=== PATIENT | female | born 1970 | race Caucasian/White ===

== ENCOUNTER 2019-01-21 15:21 | Emergency (ER) | payer BC ==
--- OUTSIDE RECORDS SUMMARY | 2019-01-21 15:24 | XMS REPORT ---
:1970 Author Organization [employer] Care Team Providers Name Role Phone Javad Villela Provider Role Unavailable Allergies, Adverse Reactions, Alerts Substance Reaction Event Type N.K.D.A. Info Not Available Non Drug Allergy Problems Problem Type Condition Code Onset Dates Condition Status Assessment Back pain without radiculopathy M54.9 Active Assessment Depression with anxiety F41.8 Active Assessment Allergic rhinitis J30.9 Active Assessment Primary insomnia F51.01 Active Assessment Tobacco use disorder F17.200 Active Assessment Psoriasis L40.9 Active Problem Depression with anxiety F41.8 Active Problem Hip joint pain M25.559 Active Problem Allergic rhinitis J30.9 Active Problem Primary insomnia F51.01 Active Problem Psoriasis L40.9 Active Problem Back pain without radiculopathy M54.9 Active Problem Tobacco use disorder F17.200 Active Medications Medication Code Code Instructions Start End Status Dosage System Date Date Tramadol HCl ND 28907780824 50 MG Orally Active 1 tablet as every 12 hrs needed Fluoxetine HCl ND 74999562596 40 MG Orally Active 1 capsule Once a day Ibuprofen ND 84312183822 800 MG Orally Active 1 tablet with Three times a food or milk day as needed Famotidine ND 28933549591 40 MG Orally Active 1 tablet Once a day Gabapentin ND 53665510105 600 MG Orally Active 1 tablet Twice a day Montelukast ND 55702006022 10 MG Orally Active 1 tablet in Sodium Once a day the evening Triamcinolone ND 18219857940 0.1 % Active 1 application Acetonide Externally to affected Twice a day area ProAir HFA [facility] [id number] 108 (90 Base) January Active 2 puffs as MCG/ACT 03, needed Inhalation 2017 every 6 hrs as needed for cough, wheezing and shortness of breath Results No Known Results Summary Purpose eClinicalWorks Submission
--- OUTSIDE RECORDS SUMMARY | 2019-01-21 15:24 | XMS REPORT ---
:1970 Author Organization [employer] Care Team Providers Name Role Phone Javad Villela Provider Role Unavailable Allergies, Adverse Reactions, Alerts Substance Reaction Event Type N.K.D.A. Info Not Available Non Drug Allergy Problems Problem Type Condition Code Onset Dates Condition Status Assessment Otalgia of left ear H92.02 Active Assessment Non-recurrent acute serous otitis H65.02 Active media of left ear Problem Depression with anxiety F41.8 Active Problem Hip joint pain M25.559 Active Problem Allergic rhinitis J30.9 Active Problem Primary insomnia F51.01 Active Problem Psoriasis L40.9 Active Problem Back pain without radiculopathy M54.9 Active Problem Tobacco use disorder F17.200 Active Medications Medication Code Code Instructions Start End Status Dosage System Date Date Montelukast ND 75849931916 10 MG Orally Active 1 tablet in Sodium Once a day the evening Gabapentin ND 45362334027 600 MG Orally Active 1 tablet Twice a day Tramadol HCl ND 87939841482 50 MG Orally Active 1 tablet as every 12 hrs needed Triamcinolone ND 71812845660 0.1 % Active 1 application Acetonide Externally to affected Twice a day area Amoxicillin-Pot ND 50673860688 875-125 MG January Active 1 tablet Clavulanate Orally every 12 12, 22, hrs 2018 2018 ProAir HFA [facility] [id number] 108 (90 Base) January Active 2 puffs as MCG/ACT 03, needed Inhalation 2018 every 6 hrs as needed for cough, wheezing and shortness of breath Fluoxetine HCl ND 90307728105 40 MG Orally Active 1 capsule Once a day Famotidine ND 18470924012 40 MG Orally Active 1 tablet Once a day Ibuprofen ND 10420091624 800 MG Orally Active 1 tablet with Three times a food or milk day as needed Results No Known Results Summary Purpose eClinicalWorks Submission
[2019-01-21] MEDS ORDERED: IBUPROFEN 400 MG TAB ONE (16:02)
[2019-01-21] MEDS ORDERED: CODEINE 30MG/APAP 300MG TAB ONE (16:02)
--- NOTE | 2019-01-21 16:12 | EDPHYS ---
Physician Documentation [facility] Name: Cortney Espinal Age: 48 yrs Sex: Female : 1970 Arrival Date: 01/21/2019 Time: 15:22 Bed 10 Private MD: Javad Villela ED Physician Jean Holloway HPI: 01/21 15:45 This 48 yrs old Female presents to ER via Ambulatory with complaints of Ear cp Pain. 15:45 The patient presents with pain, that is acute, swelling, tenderness. The complaints cp affect the left ear. 15:45 Onset: The symptoms/episode began/occurred last week. cp 15:45 Associated signs and symptoms: Pertinent negatives: cough, fever, sinus trouble, sore cp throat. Severity of symptoms: in the emergency department the symptoms are worse. The patient has been recently seen by a physician: 2 day(s) ago, with similar presenting complaints, was given a prescription for antibiotics, and steroid injection. 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 - Social history:: Smoking status: Patient/guardian denies using tobacco. - Ebola Screening: : No symptoms or risks identified at this time. ROS: 15:50 Constitutional: Negative for body aches, chills, fever, poor PO intake. cp 15:50 Eyes: Negative for injury, pain, redness, and discharge. cp 15:50 ENT: Positive for ear pain, Negative for drainage from ear(s), sinus congestion, sinus pain, sore throat, difficulty swallowing, difficulty handling secretions. 15:50 Respiratory: Negative for cough, shortness of breath, wheezing. 15:50 Abdomen/GI: Negative for abdominal pain, nausea, vomiting. 15:50 Skin: Negative for rash. 15:50 Neuro: Negative for headache, weakness. 15:50 All other systems are negative. Exam: 16:00 Constitutional: The patient appears in no acute distress, alert, awake, non-toxic, well cp developed, well nourished, uncomfortable. 16:00 Head/Face: Normocephalic, atraumatic. cp 16:00 Eyes: Periorbital structures: appear normal, Conjunctiva: normal, no exudate, no injection, Lids and lashes: appear normal, bilaterally. 16:00 ENT: External ear(s): pain with movement, that is severe, of the pinna of left ear and left ear canal, swelling, of the pinna of left ear and left ear canal, mild, Ear canal(s): swelling, that is severe, of the left canal, TM's: not visable, Examination of the other ear shows no obvious abnormality, Nose: is normal, Mouth: Lips: moist, Oral mucosa: pink and intact, moist, Posterior pharynx: is normal, airway is patent, no erythema, no exudate. 16:00 Neck: ROM/movement: is normal, is supple, without pain, no range of motions limitations, no meningismus, no nuchal rigidity. 16:00 Chest/axilla: Inspection: normal. 16:00 Respiratory: the patient does not display signs of respiratory distress, Respirations: normal. Vital Signs: 15:27 Resp 16; Temp 97.4; Pulse Ox 100% on R/A; Weight 81.65 kg; Height 5 ft. 2 in. (157.48 la1 cm); 15:29 BP 141 / 93; la1 15:27 Body Mass Index 32.92 (81.65 kg, 157.48 cm) la1 MDM: 15:43 Patient medically screened. cp 16:00 Differential diagnosis: otitis media, otitis externa, ruptured TM, foreign body, acute cp otalgia. 16:10 Data reviewed: vital signs, nurses notes, and as a result, I will discharge patient. cp 16:10 Counseling: I had a detailed discussion with the patient and/or guardian regarding: the cp historical points, exam findings, and any diagnostic results supporting the discharge/admit diagnosis, the need for outpatient follow up, a family practitioner, to return to the emergency department if symptoms worsen or persist or if there are any questions or concerns that arise at home. Response to treatment: the patient's symptoms have mildly improved after treatment, and as a result, I will discharge patient. Administered Medications: 15:49 Drug: Ibuprofen 800 mg Route: PO; iw 16:05 Follow up: Response: No adverse reaction iw 15:49 Drug: Tylenol #3 (300 mg-30 mg) 2 tabs Route: PO; iw 16:05 Follow up: Response: No adverse reaction iw Disposition: 01/21/19 16:11 Discharged to Home. Impression: Otitis externa in other diseases classified elsewhere, left ear. - Condition is Stable. - Discharge Instructions: Otitis Externa. - Prescriptions for Cipro 500 mg Oral Tablet - take 1 tablet by ORAL route every 12 hours for 10 days; 20 tablet. Tylenol- Codeine #3 300-30 mg Oral Tablet - take 2 tablets by ORAL route every 6 hours As needed; 20 tablet. Ciprodex 0.3- 0.1 % Otic Drops, Suspension - instill 4 drop by OTIC route every 12 hours for 7 days , for ears ONLY; 1 Container. - Work release form, Medication Reconciliation Form, Thank You Letter, Antibiotic Education, Prescription Opioid Use form. - Follow up: Private Physician; When: 2 - 3 days; Reason: Recheck today's complaints. - Problem is new. - Symptoms have improved. Addendum: 01/24/2019 15:56 Co-signature as Attending Physician, Jean Holloway MD. r n Signatures: Yee Pitt, RN Jean Bryant MD MD rn Attema, Lee, RN RN la1 Jona Castaneda PA PA cp Corrections: (The following items were deleted from the chart) 01/21 16:16 16:11 01/21/2019 16:11 Discharged to Home. Impression: Otitis externa in other diseases iw classified elsewhere, left ear. Condition is Stable. Forms are Medication Reconciliation Form, Thank You Letter, Antibiotic Education, Prescription Opioid Use. Follow up: Private Physician; When: 2 - 3 days; Reason: Recheck today's complaints. Problem is new. Symptoms have improved. cp
--- NOTE | 2019-01-21 16:12 | ER ---
Nurse's Notes [facility] Name: Cortney Espinal Age: 48 yrs Sex: Female : 1970 Arrival Date: 01/21/2019 Time: 15:22 Bed 10 Private MD: Javad Villela Diagnosis: Otitis externa in other diseases classified elsewhere, left ear Presentation: 01/21 15:28 Presenting complaint: Patient states: Left ear pain since Tuesday, saw Dr. Villela on la1 Tuesday and he gave me a kenalog shot and some augmentin but its not getting better. Transition of care: patient was not received from another setting of care. Onset of symptoms was January 21, 2019. Risk Assessment: Do you want to hurt yourself or someone else? Patient reports no desire to harm self or others. Initial Sepsis Screen: Does the patient meet any 2 criteria? No. Patient's initial sepsis screen is negative. Does the patient have a suspected source of infection? No. Patient's initial sepsis screen is negative. Care prior to arrival: None. 15:28 Method Of Arrival: Ambulatory la1 15:28 Acuity: JOANIE 4 la1 Triage Assessment: 16:00 General: Appears in no apparent distress. Behavior is calm. 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 - Social history:: Smoking status: Patient/guardian denies using tobacco. - Ebola Screening: : No symptoms or risks identified at this time. Screenin:40 Abuse screen: Denies threats or abuse. Denies injuries from another. Nutritional iw screening: No deficits noted. Tuberculosis screening: No symptoms or risk factors identified. Fall Risk None identified. Assessment: 15:40 General: Appears in no apparent distress. Behavior is calm, cooperative. Pain: iw Complains of pain in left ear. Neuro: Level of Consciousness is awake, alert, obeys commands, Oriented to person, place, time, situation, Moves all extremities. Cardiovascular: Patient's skin is warm and dry. Respiratory: Respiratory effort is even, unlabored, Respiratory pattern is regular, symmetrical. GI: No signs and/or symptoms were reported involving the gastrointestinal system. EENT: Ear canal swollen. Derm: Skin is intact, is healthy with good turgor. Musculoskeletal: Range of motion: intact in all extremities. Vital Signs: 15:27 Resp 16; Temp 97.4; Pulse Ox 100% on R/A; Weight 81.65 kg; Height 5 ft. 2 in. (157.48 la1 cm); 15:29 BP 141 / 93; la1 15:27 Body Mass Index 32.92 (81.65 kg, 157.48 cm) la1 ED Course: 15:20 Patient has correct armband on for positive identification. iw 15:22 Patient arrived in ED. as 15:23 Javad Villela DO is Private Physician. as 15:29 Triage completed. la1 15:29 Arm band placed on right wrist. la1 15:38 Jona Castaneda PA is PHCP. cp 15:38 Jean Holloway MD is Attending Physician. cp 15:49 Yee Pitt RN is Primary Nurse. iw 16:15 No provider procedures requiring assistance completed. Patient did not have IV access iw during this emergency room visit. Administered Medications: 15:49 Drug: Ibuprofen 800 mg Route: PO; iw 16:05 Follow up: Response: No adverse reaction iw 15:49 Drug: Tylenol #3 (300 mg-30 mg) 2 tabs Route: PO; iw 16:05 Follow up: Response: No adverse reaction iw Outcome: 16:11 Discharge ordered by MD. cp 16:15 Discharged to home ambulatory. iw 16:15 Condition: good 16:15 Discharge instructions given to patient, Instructed on discharge instructions, follow up and referral plans. medication usage, Demonstrated understanding of instructions, follow-up care, medications, Prescriptions given X 1. 16:16 Patient left the ED. iw Signatures: Nena Calle as Yee Pitt, RN RN iw Junaid Langley RN RN la1 Jona Castaneda PA PA cp Corrections: (The following items were deleted from the chart) 15:32 15:28 Presenting complaint: Patient states: Left ear pain since Tuesday, saw Dr. carla Villela on Tuesday and he gave me a kenalog shot and some antibiotics but its not getting better. la1
== END 2019-01-21 16:16 | disposition home or self-care (01) ==
LOC: ER 15:21
DX: H60.92 Unspecified otitis externa, left ear (principal)
CPT/HCPCS: 99283

== ENCOUNTER 2024-03-03 17:37 | Inpatient (IN) | payer BC ==
--- OUTSIDE RECORDS SUMMARY | 2024-03-03 17:41 | XMS REPORT | Continuity of Care Document ---
Author Name Unknown Address [address] [facility] [address] [place] [address] [facility] [address] 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 Role Phone Pcp, Patient Does Not Have A Primary Care Physic shilpi Javad Villela Attending Clinician Unavailable Edson Carr DO Attending Clinician [phone] EDSON CARR Attending Clinician Unavailab EDSON Copeland Attending Clinician Unavailab Edson Copeland DO Attending Clinician [phone] Briana Jimenes PA-C Attending Clinician [phone] Unknown, Attending Attending Clinician Unavailab BRIANA Smith Attending Clinician Unavailable Jeannie Manzo Attending Clinician [phone] JEANNIE PIERSON Attending Clinician Unavailable Harlan Bishop MD Attending Clinician [phone] Snehal Mason LVN Attending Clinician [phone] DANIEL MIDDLETON Attending Clinician UnavailAvelino Ray MD Attending Clinician [phone] Rene Blair MD Attending Clinician [phone] Daniel Middleton MD Attending Clinician [phone] ARI_C Attending Clinician Unavailable Doctor Unassigned, [place] Attending Clinician U navailable Lab, Adc Fam Pob I Attending Clinician Unavailab dino Manueljagjitroberta COOK SPECIALTYLaure Cox Attending Clinician [phone] LAURE BUSH Attending Clinician UnavailRENE Palomino Admitting Clinician Unavailable ARI_Zahra Admitting Clinician Unavailable Payers Payer Name Policy Type Policy Number Effective Date Expirati on Date Source [facility] 6 [id number] 2021 00:00:00 [facility] [place] [id number] [facility] 6 [id number] 2020 00:00:00 [facility] Problems Condition Name Condition Details Condition Category Status Onset Date Resolution Date Last Treatment Date Treating Clinician Comments Source COPD with acute exacerbati on COPD with acute exacerbati on Disease Active 11-06 00:00: 00 [facility] [id number] Mixed hyperlipid emia Problem [facility] [id number] Body mass index [BMI] 32.0-32.9, adult Problem [facility] [id number] Other obesity due to excess calories Problem [facility] [id number] Other chronic pain Problem [facility] [id number] Lumbar spondylosi s Problem [facility] [id number] Psoriasis Problem [facility] [id number] Primary insomnia Problem [facility] Hip joint pain Hip joint Pain in unspecifie d hip Problem [facility] Allergic rhinitis Allergic rhinitis Problem [facility] Mixed anxiety and depressive disorder Depression with anxiety Problem [facility] [id number] Back pain without radiculopa thy Problem [facility] [id number] Tobacco use disorder Problem [facility] [id number] Pain, joint, shoulder, right Problem [facility] [id number] Chronic obstructiv e pulmonary disease, unspecifie d COPD type Problem [facility] Allergies, Adverse Reactions, Alerts Allergy Name Allergy Type Status Severity Reaction(s) Onset Date Inactive Date Treating Clinician Comments Source NO KNOWN ALLERGIE S Drug Class Active [facility] Social History Social Habit Start Date Stop Date Quantity Comments Source Sex Assigned At [facility] of [facility] use Cigarette Smoker [facility] History of Social function 2023-12-14 00:00:00 2023-12-14 00:00:00 [facility] Tobacco use and exposure 2023-11-07 00:00:00 2023-11-07 00:00:00 Former smokeless tobacco user [facility] Tobacco Comment 2023-11-07 00:00:00 2023-11-07 00:00:00 N/a [facility] Exposure to SARS-CoV-2 (event) 2019-12-12 00:00:00 2020-01-11 11:15:00 Yes [facility] Smoking Status Start Date Stop Date Source Current Every Day Smoker [facility] Tobacco smoking consumption unknown [facility] Ex-smoker 2023-11-07 00:00:00 2023-11-07 00:00:00 [facility] Medications Ordered Medication Name Filled Medication Name Start Date Stop Date Current Medication? Ordering Clinician Indication Dosage Frequency Signature (SIG) Comments Components Source albuterol 90 mcg/actuati on inhaler 03-02 00:00: 00 Yes [id number] 2{puff} Inhale 2 Puffs every 6 (six) hours as needed for Wheezing or Shortness of Breath. [facility] methotrexat e 2.5 mg tablet 01-09 08:21: 42 Yes 2.5mg Take 1 tablet by mouth weekly [facility] prednisoLON E 5 mg tablet 01-09 08:21: 42 Yes 5mg Take 1 tablet by mouth as needed. [facility] acetaminoph en (TYLENOL ARTHRITIS PAIN) 650 mg CR tablet 12-13 00:00: 00 Yes [id number] 650mg Take 1 tablet by mouth every 8 (eight) hours as needed for Pain. [facility] ibuprofen 800 mg tablet 12-13 00:00: 00 Yes [id number] 800mg Take 1 tablet by mouth every 6 (six) hours as needed for Pain (scale 4-6). [facility] dexamethaso ne (DECADRON) injection 10 mg 12-03 16:15: 00 12-03 15:13 :00 No [id number] 10mg 10 mg, Intramuscu lar, ONCE, 1 dose, On 12/04/23 at 1115, Routine [facility] ketorolac (TORADOL) injection 30 mg 12-03 16:00: 00 12-03 15:14 :00 No [id number] 30mg 30 mg, Intramuscu lar, ONCE, 1 dose, On Tue12/04/23 at 1100, Routine [facility] azithromyci n 500 mg tablet 11-08 00:00: 00 11-12 04:59 :00 No [id number] 500mg Take 1 tablet by mouth in the morning for 3 days. [facility] budesonide (PULMICORT RESPULE) nebulizer solution 0.25 mg 11-07 01:00: 00 Yes .25mg 0.25 mg, Inhalation , BID, First dose on Tue11/07/23 at 1999, Until Discontinu ed, Routine [facility] methylpredn isolone sod succ (SOLU-MEDRO L) injection 80 mg 11-07 01:00: 00 Yes 80mg 80 mg, Intravenou s, Q12H, First dose on Tue11/07/23 at 1999, Until Discontinu ed, 2 mL [facility] docusate (COLACE) capsule 100 mg 11-07 01:00: 00 Yes 100mg 100 mg, Oral, BID, First dose on Tue11/07/23 at 1999, Until Discontinu ed, Routine [facility] fluticasone -umeclidin- vilanter (TRELEGY ELLIPTA) 100-62.5-25 mcg inhaler 11-07 00:00: 00 Yes [id number] 1{puff} Inhale 1 Puff in the morning. [facility] albuterol 1.25 mg/3 mL nebulizer solution 11-07 00:00: 00 12-08 04:59 :00 No [id number] 1.25mg Use 3 mL as directed every 6 (six) hours as needed for Wheezing for up to 30 days. [facility] predniSONE 20 mg tablet 11-07 00:00: 00 11-18 04:59 :00 No [id number] Take 2 tablets by mouth daily for 1 day, THEN 1.5 tablets daily for 3 days, THEN 1 tablet daily for 3 days, THEN 0.5 tablets daily for 3 days. [facility] dextrometho rphan-guaif enesin 10-100 mg/5 mL solution 11-07 00:00: 00 11-13 04:59 :00 No [id number] 10mL Take 10 mL by mouth every 6 (six) hours as needed for Cough for up to 5 days. [facility] ipratropium -albuteroL 0.5 mg-3 mg(2.5 mg base)/3 mL nebulizer solution 11-07 00:00: 00 11-11 04:59 :00 No [id number] 3mL Inhale 3 mL every 6 (six) hours for 3 days. [facility] enoxaparin (LOVENOX) injection 40 mg 11-06 22:00: 00 Yes 40mg 40 mg, Subcutaneo us, DAILY, First dose on Tue11/07/23 at 1700, Until Discontinu ed, Routine [facility] pantoprazol e (PROTONIX) EC tablet 40 mg 11-06 19:45: 00 Yes 40mg 40 mg, Oral, DAILY, First dose on Tue11/07/23 at 1445, Until Discontinu ed, Routine [facility] azithromyci n (ZITHROMAX) tablet 500 mg 11-06 19:45: 00 11-09 13:59 :00 No 500mg 500 mg, Oral, DAILY, 3 doses, First dose on Tue11/07/23 at 1445, Last dose on Tue11/09/23 at 0900, RJ
Re ason for Anti-Infec tive: Empiric Therapy for Suspected Infection< br>Empiric Therapy Site: Respirator y
Durat ion of therapy: 72 hours [facility] ipratropium -albuteroL (DUONEB) 0.5 mg-3 mg(2.5 mg base)/3 mL nebulizer solution 3 mL 11-06 17:00: 00 Yes 3mL 3 mL, Inhalation , Q6H, First dose on Tue11/07/23 at 1200, Until Discontinu ed, Routine [facility] benzocaine- menthoL (CEPACOL SORE THROAT (MEGAN-MEN)) lozenge 1 Lozenge 11-06 16:22: 50 Yes 1{lozen ge} 1 Lozenge, Oral, Q4HPRN, Starting on Tue11/07/23 at 1122, Until Discontinu ed, Routine, Sore throat [facility] dextrometho rphan-guaif enesin (ROBITUSSIN DM) 10-100 mg/5 mL solution 10 mL 11-06 16:22: 37 Yes 10mL 10 mL, Oral, Q6HPRN, Starting on Tue11/07/23 at 1122, Until Discontinu ed, Routine, Cough [facility] ondansetron (ZOFRAN (PF)) injection 4 mg 11-06 16:14: 06 Yes 4mg 4 mg, Slow IV Push, Q6HPRN, Starting on Tue11/07/23 at 1114, Until Discontinu ed, Routine, Nausea and Vomiting (N/V) [facility] HYDROcodone -acetaminop hen (NORCO) 10-325 mg tablet 1 tablet 11-06 16:13: 53 Yes 1{tbl} 1 tablet, Oral, Q6HPRN, Starting on Tue11/07/23 at 1113, Until Discontinu ed, Routine, Pain (scale 7-10) [facility] traMADoL (ULTRAM) tablet 50 mg 11-06 16:13: 48 11-08 16:12 :48 No 50mg 50 mg, Oral, Q8HPRN, Starting on Tue11/07/23 at 1113, Until Tue11/09/23 at 1112, Routine, Pain (scale 4-6) [facility] acetaminoph en (TYLENOL) tablet 650 mg 11-06 16:13: 46 Yes 650mg 650 mg, Oral, Q6HPRN, Starting on Tue11/07/23 at 1113, Until Discontinu ed, Routine, Pain (scale 1-3) [facility] Kenalog (Triamcinol one) Kenalog (Triamcinol one) 2-13 00:00: 00 No 40mg [facility] Kenalog (Triamcinol one) Kenalog (Triamcinol one) 2021-07 0-12 00:00: 00 No 40mg [facility] Kenalog (Triamcinol one) Kenalog (Triamcinol one) 2021-07 0-12 00:00: 00 No 40mg [facility] Kenalog (Triamcinol one) Kenalog (Triamcinol one) 2021-07 0-12 00:00: 00 No 40mg [facility] FLUoxetine HCl 40 MG FLUoxetine HCl 40 MG 7-12 00:00: 00 No 1{capsu le} QD FLUoxetine HCl 40 MG Ativan Ativan 8-12 00:00: 00 02-20 00:00 :00 No Javad Villela 1 tablet 30 minutes prior to procedure [facility] Kenalog (Triamcinol one) Kenalog (Triamcinol one) 7-08 00:00: 00 No 40mg [facility] Kenalog (Triamcinol one) Kenalog (Triamcinol one) 7-08 00:00: 00 No 40mg [facility] Kenalog (Triamcinol one) Kenalog (Triamcinol one) 0 708 00:00: 00 No 40mg [facility] Kenalog (Triamcinol one) Kenalog (Triamcinol one) 08 00:00: 00 No 40mg [facility] LIDOCAINE HCL 10MG/ML LIDOCAINE HCL 10MG/ML 2018-07 0- 00:00: 00 No 5mL [facility] Kenalog (Triamcinol one) Kenalog (Triamcinol one) 2018-07 0- 00:00: 00 No 1mL [facility] LIDOCAINE HCL 10MG/ML LIDOCAINE HCL 10MG/ML 2018-07 0 00:00: 00 No 5mL [facility] Kenalog (Triamcinol one) Kenalog (Triamcinol one) 2018-07 0- 00:00: 00 No 1mL [facility] LIDOCAINE HCL 10MG/ML LIDOCAINE HCL 10MG/ML 2018-07 0 00:00: 00 No 5mL [facility] Kenalog (Triamcinol one) Kenalog (Triamcinol one) 2018-07 0- 00:00: 00 No 1mL [facility] LIDOCAINE HCL 10MG/ML LIDOCAINE HCL 10MG/ML 2018-07 0- 00:00: 00 No 5mL [facility] Kenalog (Triamcinol one) Kenalog (Triamcinol one) 2018-07 0- 00:00: 00 No 1mL [facility] Kenalog (Triamcinol one) Kenalog (Triamcinol one) 12 00:00: 00 No 40mg [facility] Kenalog (Triamcinol one) Kenalog (Triamcinol one) 12 00:00: 00 No 40mg [facility] Kenalog (Triamcinol one) Kenalog (Triamcinol one) 01-19 00:00: 00 No 40mg [facility] Kenalog (Triamcinol one) Kenalog (Triamcinol one) 01-19 00:00: 00 No 40mg [facility] ibuprofen 600 mg tablet 11-08 00:00: 00 Yes 600mg Take 1 tablet by mouth every 6 (six) hours. [facility] cyclobenzap rine 10 mg tablet 11-08 00:00: 00 Yes 10mg Take 1 tablet by mouth 3 (three) times daily. [facility] fluoxetine 40 mg capsule fluoxetine 40 mg capsule No fluoxetine 40 mg capsule [facility] montelukast 10 mg tablet montelukast 10 mg tablet No montelukas t 10 mg tablet [facility] Albuterol Sulfate HFA 108 (90 Base) MCG/ACT Albuterol Sulfate HFA 108 (90 Base) MCG/ACT No Albuterol Sulfate HFA 108 (90 Base) MCG/ACT Symbicort 160-4.5 MCG/ACT Symbicort 160-4.5 MCG/ACT No Symbicort 160-4.5 MCG/ACT Famotidine 40 MG Famotidine 40 MG No 1{table t} QD Famotidine 40 MG Triamcinolo ne Acetonide 0.1 % Triamcinolo ne Acetonide 0.1 % No 1{appli cation_ to_affe cted_ar ea} BID Triamcinol one Acetonide 0.1 % FLUoxetine HCl 40 MG FLUoxetine HCl 40 MG No 1{capsu le} QD FLUoxetine HCl 40 MG Gabapentin 600 MG Gabapentin 600 MG No Gabapentin 600 MG Montelukast Sodium 10 MG Montelukast Sodium 10 MG No 1{table t_in_th e_eveni ng} QD Montelukas t Sodium 10 MG Symbicort 160 mcg-4.5 mcg/actuati on HFA aerosol inhaler Symbicort 160 mcg-4.5 mcg/actuati on HFA aerosol inhaler No Symbicort 160 mcg-4.5 mcg/actuat ion HFA aerosol inhaler [facility] Gabapentin 600 MG Gabapentin 600 MG No Gabapentin 600 MG Symbicort 160-4.5 MCG/ACT Symbicort 160-4.5 MCG/ACT No Symbicort 160-4.5 MCG/ACT compounded medication Semaglutide SQ QW titrate as tolerated compounded medication Semaglutide SQ QW titrate as tolerated No compounded medication Semaglutid e SQ QW titrate as tolerated [facility] Triamcinolo ne Acetonide 0.1 % Triamcinolo ne Acetonide 0.1 % No 1{appli cation_ to_affe cted_ar ea} BID Triamcinol one Acetonide 0.1 % predniSONE 20 MG predniSONE 20 MG No 2{table t} QD predniSONE 20 MG ProAir HFA 90 ProAir HFA 90 No 2{puffs _as_nee ded} ProAir HFA 90 Montelukast Sodium 10 MG Montelukast Sodium 10 MG No 1{table t_in e_eveni ng} QD Montelukas t Sodium 10 MG Albuterol Sulfate HFA 108 (90 Base) MCG/ACT Albuterol Sulfate HFA 108 (90 Base) MCG/ACT No Albuterol Sulfate HFA 108 (90 Base) MCG/ACT predniSONE 20 MG predniSONE 20 MG No 2{table t} QD predniSONE 20 MG compounded medication Semagltuide sq qw compounded medication Semagltuide sq qw No compounded medication Semagltuid e sq qw [facility] Triamcinolo ne Acetonide 0.1 % Triamcinolo ne Acetonide 0.1 % No 1{appli cation_ to_affe cted_ar ea} BID Triamcinol one Acetonide 0.1 % Montelukast Sodium 10 MG Montelukast Sodium 10 MG No 1{table t_in e_eveni ng} QD Montelukas t Sodium 10 MG Gabapentin 300 MG Gabapentin 300 MG No QD Gabapentin 300 MG Albuterol Sulfate HFA 108 (90 Base) MCG/ACT Albuterol Sulfate HFA 108 (90 Base) MCG/ACT No Albuterol Sulfate HFA 108 (90 Base) MCG/ACT Gabapentin 600 MG Gabapentin 600 MG No Gabapentin 600 MG albuterol sulfate HFA 90 mcg/actuati on aerosol inhaler albuterol sulfate HFA 90 mcg/actuati on aerosol inhaler No albuterol sulfate HFA 90 mcg/actuat ion aerosol inhaler [facility] valACYclovi r HCl 1 GM valACYclovi r HCl 1 GM No 1{table t} TID valACYclov ir HCl 1 GM ProAir HFA 90 ProAir HFA 90 No 2{puffs _as_nee ded} ProAir HFA 90 FLUoxetine HCl 40 MG FLUoxetine HCl 40 MG No 1{capsu le} QD FLUoxetine HCl 40 MG Symbicort 160-4.5 MCG/ACT Symbicort 160-4.5 MCG/ACT No Symbicort 160-4.5 MCG/ACT Triamcinolo ne Acetonide 0.1 % Triamcinolo ne Acetonide 0.1 % No 1{appli cation_ to_affe cted_ar ea} BID Triamcinol one Acetonide 0.1 % ProAir HFA 90 ProAir HFA 90 No 2{puffs _as_nee ded} ProAir HFA 90 compounded medication Semaglutide SQ QW titrate as tolerated compounded medication Semaglutide SQ QW titrate as tolerated No compounded medication Semaglutid e SQ QW titrate as tolerated [facility] Symbicort 160-4.5 MCG/ACT Symbicort 160-4.5 MCG/ACT No Symbicort 160-4.5 MCG/ACT Montelukast Sodium 10 MG Montelukast Sodium 10 MG No 1{table t_in_th e_eveni ng} QD Montelukas t Sodium 10 MG FLUoxetine HCl 40 MG FLUoxetine HCl 40 MG No 1{capsu le} QD FLUoxetine HCl 40 MG Gabapentin 600 MG Gabapentin 600 MG No Gabapentin 600 MG Albuterol Sulfate HFA 108 (90 Base) MCG/ACT Albuterol Sulfate HFA 108 (90 Base) MCG/ACT No Albuterol Sulfate HFA 108 (90 Base) MCG/ACT traMADol HCl 50 MG traMADol HCl 50 MG No 1{table t_as_ne eded} BID Symbicort 160-4.5 Symbicort 160-4.5 10-13 00:00 :00 No 2{puffs } BID Symbicort 160-4.5 Immunizations Ordered Immunization Name Filled Immunization Name Date Status Comments Source Boostrix (Tdap) Boostrix (Tdap) 2019-03-29 14:50:00 Completed [facility] Boostrix (Tdap) Boostrix (Tdap) 2019-03-29 14:50:00 Completed [facility] Boostrix (Tdap) Boostrix (Tdap) 2019-03-29 14:50:00 Completed [facility] Boostrix (Tdap) Boostrix (Tdap) 2019-03-29 14:50:00 Completed [facility] Boostrix (Tdap) Boostrix (Tdap) 2019-03-29 14:50:00 Completed [facility] Boostrix (Tdap) Boostrix (Tdap) 2019-03-29 14:50:00 Completed [facility] Boostrix (Tdap) Boostrix (Tdap) 2019-03-29 14:50:00 Completed [facility] Boostrix (Tdap) Boostrix (Tdap) 2019-03-29 14:50:00 Completed [facility] Boostrix (Tdap) Boostrix (Tdap) 2019-03-29 14:50:00 Completed [facility] PNEUMAVAX 23 PNEUMAVAX 2019-03-29 14:47:00 Completed [facility] PNEUMAVAX 23 PNEUMAVAX 2019-03-29 14:47:00 Completed [facility] PNEUMAVAX 23 PNEUMAVAX 2019-03-29 14:47:00 Completed [facility] PNEUMAVAX 23 PNEUMAVAX 2019-03-29 14:47:00 Completed [facility] PNEUMAVAX 23 PNEUMAVAX 2019-03-29 14:47:00 Completed [facility] PNEUMAVAX 23 PNEUMAVAX 2019-03-29 14:47:00 Completed [facility] PNEUMAVAX 23 PNEUMAVAX 2019-03-29 14:47:00 Completed [facility] PNEUMAVAX 23 PNEUMAVAX 2019-03-29 14:47:00 Completed [facility] PNEUMAVAX 23 PNEUMAVAX 23 2019-03-29 14:47:00 Completed [facility] TDAP- Boostrix TDAP- Boostrix 2019-03-29 00:00:00 Completed [facility] PNEUMAVAX 23 PNEUMAVAX 23 2019-03-29 00:00:00 Completed [facility] PNEUMAVAX 23 PNEUMAVAX 23 Unknown Completed [facility] Boostrix (Tdap) Boostrix (Tdap) Unknown Completed [facility] PNEUMAVAX 23 PNEUMAVAX 23 Unknown Completed [facility] Boostrix (Tdap) Boostrix (Tdap) Unknown Completed [facility] Vital Signs Vital Name Observation Time Observation Value Comments S ource Systolic blood pressure 2024-01-10 13:22:00 125 mm[Hg] [facility] Diastolic blood pressure 2024-01-10 13:22:00 90 mm[Hg] [facility] Heart rate 2024-01-10 13:22:00 85 /min [facility] Oxygen saturation in Arterial blood by Pulse oximetry 2024-01-10 13:22:00 97 /min [facility] Respiratory rate 2024-01-10 13:19:00 14 /min [facility] Body height 2024-01-10 13:19:00 157.5 cm [facility] Body weight 2024-01-10 13:19:00 71.623 kg [facility] BMI 2024-01-10 13:19:00 28.88 kg/m2 [facility] Systolic blood pressure 2023-12-15 00:10:00 144 mm[Hg] [facility] Diastolic blood pressure 2023-12-15 00:10:00 89 mm[Hg] [facility] Heart rate 2023-12-15 00:09:00 89 /min [facility] Body temperature 2023-12-15 00:09:00 36.78 Keshia [facility] Respiratory rate 2023-12-15 00:09:00 18 /min [facility] Body height 2023-12-15 00:09:00 157.5 cm Univ [facility] Body weight 2023-12-15 00:09:00 70.625 kg Univ [facility] BMI 2023-12-15 00:09:00 28.48 kg/m2 Univ [facility] Oxygen saturation in Arterial blood by Pulse oximetry 2023-12-15 00:09:00 96 /min [facility] Respiratory rate 2023-12-04 15:00:00 17 /min [facility] Body weight 2023-12-04 15:00:00 70.67 kg [facility] BMI 2023-12-04 15:00:00 28.50 kg/m2 Univ [facility] Oxygen saturation in Arterial blood by Pulse oximetry 2023-12-04 15:00:00 98 /min [facility] Systolic blood pressure 2023-12-04 15:00:00 127 mm[Hg] [facility] Diastolic blood pressure 2023-12-04 15:00:00 90 mm[Hg] [facility] Heart rate 2023-12-04 15:00:00 86 /min [facility] Body temperature 2023-12-04 15:00:00 36.94 Keshia [facility] Heart rate 2023-11-08 16:37:00 91 /min [facility] Respiratory rate 2023-11-08 16:37:00 20 /min [facility] Oxygen saturation in Arterial blood by Pulse oximetry 2023-11-08 16:37:00 99 /min [facility] Systolic blood pressure 2023-11-08 12:12:00 115 mm[Hg] [facility] Diastolic blood pressure 2023-11-08 12:12:00 70 mm[Hg] [facility] Body temperature 2023-11-08 12:12:00 36.61 Keshia [facility] Body height 2023-11-07 13:00:00 157.5 cm Univ [facility] Body weight 2023-11-07 13:00:00 68.9 kg [facility] BMI 2023-11-07 13:00:00 27.78 kg/m2 [facility] height 2023-10-13 10:20:00 62 [in_i] [facility] weight 2023-10-13 10:20:00 178.8 [lb_av] [facility] bmi 2023-10-13 10:20:00 32.7 kg/m2 [facility] BP Diastolic 2023-01-20 00:00:00 92 mm[Hg] [facility] Height 2023-01-20 00:00:00 62 [in_i] [facility] BMI (Body Mass Index) 2023-01-20 00:00:00 28.7 kg/m2 [facility] BP Systolic 2023-01-20 00:00:00 147 mm[Hg] [facility] Body Weight 2023-01-20 00:00:00 2511 [oz_av] [facility] BP Diastolic 2022-10-26 00:00:00 101 mm[Hg] [facility] Height 2022-10-26 00:00:00 62 [in_i] [facility] BMI (Body Mass Index) 2022-10-26 00:00:00 32 kg/m2 [facility] BP Systolic 2022-10-26 00:00:00 153 mm[Hg] [facility] Body Weight 2022-10-26 00:00:00 2801.6 [oz_av] [facility] height 2022-04-21 13:20:00 62 [in_i] [facility] weight 2022-04-21 13:20:00 178.8 [lb_av] [facility] temperature 2022-04-21 13:20:00 97.5 [degF] Com mon [facility] bmi 2022-04-21 13:20:00 32.7 kg/m2 [facility] oximetry 2022-04-21 13:20:00 95 % [facility] respiratory rate 2022-04-21 13:20:00 17 /min [facility] blood pressure systolic 2022-04-21 13:20:00 126 mm[Hg] [facility] blood pressure diastolic 2022-04-21 13:20:00 84 mm[Hg] [facility] height 2022-01-19 13:20:00 62 [in_i] [facility] weight 2022-01-19 13:20:00 180 [lb_av] Comm on [facility] temperature 2022-01-19 13:20:00 97.4 [degF] Com mon [facility] bmi 2022-01-19 13:20:00 32.92 kg/m2 Comm on [facility] blood pressure systolic 2022-01-19 13:20:00 132 mm[Hg] [facility] blood pressure diastolic 2022-01-19 13:20:00 75 mm[Hg] [facility] height 2021-09-09 15:50:00 62 [in_i] Commo n [facility] weight 2021-09-09 15:50:00 180 [lb_av] Comm on [facility] temperature 2021-09-09 15:50:00 98 [degF] Comm on [facility] bmi 2021-09-09 15:50:00 32.92 kg/m2 Comm on [facility] blood pressure systolic 2021-09-09 15:50:00 132 mm[Hg] [facility] blood pressure diastolic 2021-09-09 15:50:00 75 mm[Hg] [facility] height 2021-08-13 14:10:00 62 [in_i] Commo n [facility] weight 2021-08-13 14:10:00 182.7 [lb_av] Co mmon [facility] temperature 2021-08-13 14:10:00 97.5 [degF] Com mon [facility] bmi 2021-08-13 14:10:00 33.41 kg/m2 Comm on [facility] oximetry 2021-08-13 14:10:00 96 % Commo n [facility] respiratory rate 2021-08-13 14:10:00 17 /min [facility] blood pressure systolic 2021-08-13 14:10:00 134 mm[Hg] [facility] blood pressure diastolic 2021-08-13 14:10:00 86 mm[Hg] [facility] Procedures Procedure Date / Time Performed Performing Clinicia n Source XR WRIST 3+ VW RIGHT 2023-12-04 15:19:02 Suki Pierson [facility] COMP. METABOLIC PANEL (60363) 2023-11-08 09:23:00 Rene Blair [facility] CBC WITH DIFF 2023-11-08 09:23:00 Rene Blair [facility] XR CHEST 1 VW 2023-11-07 21:01:55 Srinivasan Lieberman [facility] SPUTUM CULTURE 2023-11-07 19:31:00 Rene Blair [facility] COMP. METABOLIC PANEL (86362) 2023-11-07 16:59:00 Rene Blair [facility] CBC WITH DIFF 2023-11-07 16:59:00 Rene Blair [facility] Encounters Start Date/Time End Date/Time Encounter Type Admission Type Attending Clinicians Care Facility Care Department Encounter ID Source 2023-10-13 08:55:00 Outpatient [facility]bert murphy[facility] [id number] [facility] 2023-10-12 16:59:00 Outpatient Hebert Villelah [facility] [id number] [facility] 2022-04-20 10:39:00 [facility] [id number] [facility] 2022-01-18 16:46:00 Outpatient Villela, [facility] [id number] [facility] 2021-12-30 14:50:00 Outpatient Villela, [facility]avad [facility] [id number] [facility] 2021-09-08 11:10:00 Outpatient Villela, Jav[facility] [place] [id number] [facility] 2021-08-13 13:50:00 Outpatient Villela, Javad [facility] [place] [id number] [facility] 2021-08-12 14:20:00 Outpatient Villela, Javad [facility] [place] [id number] [facility] 2021-08-05 13:04:39 Outpatient Villela, Javad [facility] [place] [id number] [facility] 2021-08-05 11:39:34 Outpatient Villela, Javad [facility] [place] [id number] [facility] 2021-08-05 11:17:02 Outpatient Villela, Javad [facility] [place] [id number] [facility] 2024-03-02 00:00:00 2024-03-02 10:15:58 Telephone Edson Carr [facility] 1.2.840.114 350.1.13.10 4.2.7.2.686 [id number] [facility] 2024-01-30 11:00:00 2024-01-30 11:00:00 Outpatient R [facility] [id number] [facility] 2024-01-10 08:30:00 2024-01-10 08:59:08 Outpatient R EDSON CARR SHIWAN [facility] [id number] [facility] 2024-01-10 08:30:00 2024-01-10 08:59:08 Office Visit [facility] 1.2.840.114 350.1.13.10 4.2.7.2.686 [id number] [facility] 2023-12-14 19:00:00 2023-12-14 19:20:00 Urgent Care Briana Jimenes Unknown, Attending [facility] 1..840.114 350.1.13.10 4.2.7.2.686 [id number] [facility] 2023-12-14 19:00:00 2023-12-14 19:00:00 Outpatient R TAMIKABRIANA FAROOQ [facility] [id number] [facility] 2023-12-04 10:06:41 2023-12-04 23:59:00 Hospital Encounter Jeannie Pierson [facility] 1.2.840.114 350.1.13.10 4.2.7.2.686 [id number] [facility] 2023-12-04 10:00:00 2023-12-04 10:30:49 Outpatient R JEANNIE PIERSON [facility] [id number] [facility] 2023-12-04 10:00:00 2023-12-04 10:20:00 Urgent Care Jeannie Pierson Unknown, Attending [facility] 1..840.114 350.1.13.10 4.2.7.2.686 [id number] [facility] 2023-11-25 11:00:00 2023-11-25 11:00:00 Outpatient R [facility] [id number] [facility] 2023-11-17 00:00:00 2023-11-17 14:42:49 Case Management Harlan Bishop [facility] 1.2.840.114 350.1.13.10 4.2.7.2.686 [id number] [facility] 2023-11-09 00:00:00 2023-11-09 00:00:00 Transition of Care Snehal Mason GRACIELA [facility] 1.2.840.114 350.1.13.10 4.2.7.2.686 [id number] [facility] 2023-11-07 07:44:00 2023-11-08 14:33:00 Outpatient DANIEL HOWARD [facility] [id number] [facility] 2023-11-07 07:44:00 2023-11-08 14:33:00 Hospital Encounter Avelino Wood, Rene Middleton, Daniel [facility] ([facility]) 1.2.840.114 350.1.13.10 4.2.7.2.686 [id number] [facility] 2023-10-13 00:00:00 2023-10-13 00:00:00 OFFICE VISIT ESTAB PT LEVEL 3 [facility] [id number] [facility] 2023-10-12 00:00:00 2023-10-12 00:00:00 (TEL) [facility] [id number] [facility] 2023-03-22 00:00:00 2023-03-22 00:00:00 Outpatient SISSON_C [facility] [id number] [facility] 2023-02-08 00:00:00 2023-02-08 00:00:00 Outpatient SISSON_C [facility] [id number] [facility] 2023-02-07 00:00:00 2023-02-07 00:00:00 Outpatient SISSON_C [facility] [id number] [facility] 2023-01-20 00:00:00 2023-01-20 00:00:00 Outpatient SISSON_C [facility] [id number] [facility] 2023-01-20 00:00:00 2023-01-20 00:00:00 Anabel Fletcher MSN, REGISTERED RESPIRATORY THERAPIST, [facility]: [address], [address] [place] [address] , [address] [facility], Anabel Fletcher, MSN, [facility] [id number] [facility] 2022-12-17 00:00:00 2022-12-17 00:00:00 Outpatient SISSON_C [facility] [id number] [facility] 2022-11-03 00:00:00 2022-11-03 00:00:00 Outpatient SISSON_C [facility] [id number] [facility] 2022-10-26 00:00:00 2022-10-26 00:00:00 Outpatient SISSON_C [facility] [id number] [facility] 2022-10-26 00:00:00 2022-10-26 00:00:00 Anabel Fletcher MSN, REGISTERED RESPIRATORY THERAPIST, [facility]: [address], [place] [address] , [address] [facility], Anabel Fletcher, MSN, [facility] [id number] [facility] 2022-09-24 00:00:00 2022-09-24 00:00:00 Outpatient SISSON_C [facility] [id number] [facility] 2022-04-21 00:00:00 2022-04-21 00:00:00 OFFICE VISIT ESTAB PT LEVEL 4 [facility] [id number] [facility] 2022-01-19 00:00:00 2022-01-19 00:00:00 OFFICE VISIT ESTAB PT LEVEL 4 [facility] [id number] [facility] 2021-09-21 00:00:00 2021-09-21 00:00:00 (TEL) [facility] [id number] [facility] 2021-09-09 00:00:00 2021-09-09 00:00:00 OFFICE VISIT EST PT LEVEL 3 [facility] [id number] [facility] 2021-09-08 00:00:00 2021-09-08 00:00:00 (TEL) [facility] [id number] [facility] 2021-08-13 00:00:00 2021-08-13 00:00:00 PREV VISIT EST AGE 40-64 [facility] ST[facility] [id number] [facility] 2021-07-15 00:00:00 2021-07-15 00:00:00 (TEL) [facility]LML[facility] [id number] [facility] 2021-07-14 00:00:00 2021-07-14 00:00:00 (TEL) [facility] [id number] [facility] 2020-11-25 00:00:00 2020-11-25 00:00:00 Outpatient [facility] [id number] [facility] 2020-11-25 00:00:00 2020-11-25 00:00:00 Outpatient [facility] [id number] [facility] 2020-02-20 09:27:00 2020-02-20 09:27:00 Outpatient Jenelle case [facility] Medicine [place] [facility] Medicine [id number] [facility] 2020-02-14 15:16:00 2020-02-14 15:16:00 [facility] [place] [facility] [id number] [facility] 2020-02-13 13:30:00 2020-02-13 13:30:00 [facility] [place] [facility] Medicine [id number] [facility] 2020-01-16 16:03:00 2020-01-16 16:03:00 [facility] [place] [facility] Medicine [id number] [facility] 2020-01-16 14:15:00 2020-01-16 14:15:00 [facility] [address] [facility] [place] [facility] Medicine [id number] [facility] 2020-01-15 13:30:00 2020-01-15 13:30:00 [facility] [id number] [facility] 2020-01-14 00:00:00 2020-01-14 00:00:00 Patient Secure Msg Doctor Unassigned, [place] [facility] 1.840.114 350.1.13.10 4.2.7.2.686 [id number] [facility] 2020-01-11 11:13:50 2020-01-11 11:33:50 Laboratory Only Lab, Adc Fam Pob I Laure Bush [facility] One ..840.114 350.1.13.10 4.2.7.2.686 [id number] [facility] 2020-01-11 11:20:00 2020-01-11 11:20:00 Outpatient R LAURE BUSH [facility] [id number] [facility] 2020-01-11 11:15:00 2020-01-11 11:15:00 Outpatient R [facility] [id number] [facility] 2020-01-10 09:11:00 2020-01-10 09:11:00 [facility] [place] [facility] [id number] [facility] 2019-10-17 11:41:00 2019-10-17 11:41:00 [facility] [place] [facility] [id number] [facility] 2019-10-15 11:30:00 2019-10-15 11:30:00 [facility] [place] [facility] [id number] [facility] 2019-10-15 10:52:00 2019-10-15 10:52:00 [facility] [place] [facility] [id number] [facility] 2019-06-27 15:12:00 2019-06-27 15:12:00 [facility] [place] [facility] [id number] [facility] 2019-04-10 10:34:00 2019-04-10 10:34:00 [facility] [id number] [facility] 2019-04-10 10:00:00 2019-04-10 10:00:00 [facility] [id number] [facility] 2019-04-02 15:15:00 2019-04-02 15:15:00 [facility] [place] [facility] [id number] [facility] 2019-03-29 14:15:00 2019-03-29 14:15:00 [facility] [place] [facility] [id number] [facility] 2019-02-22 16:16:00 2019-02-22 16:16:00 [facility] [place] [facility] [id number] [facility] 2019-02-22 14:30:00 2019-02-22 14:30:00 [facility] [place] [facility] [id number] [facility] 2019-01-19 09:15:00 2019-01-19 09:15:00 Outpatient [facility] [id number] [facility] 2018-12-27 15:15:00 2018-12-27 15:15:00 Outpatient [facility] [id number] [facility] 2018-01-10 13:30:00 2018-01-10 13:30:00 Outpatient [facility] [id number] [facility] 2017-10-25 13:30:00 2017-10-25 13:30:00 Outpatient [facility] [id number] [facility] Results Test Description Test Time Test Comments Results Resul t Comments Source XR WRIST 3+ VW RIGHT 2023-12-04 15:27:44 EXAM: XR WRIST 3+ VW RIGHT HISTORY: right wrist pain COMPARISON: None available FINDINGS: Imaging of the wrist demonstrates maintenance of alignment. Joint spacesare preserved. Focal swelling is seen at the dorsal wrist. No lytic orblastic bony lesion is noted. No aggressive bony destructive change orperiosteal reaction is appreciated. No acute bony abnormality [facility]demonstrated. [facility] [id number] 21:22:19CHEST ONE VIEW HISTORY: ?COPD TECHNIQUE: ?AP view of the chest is obtained. FINDINGS: Lungs are likely hyperinflated but clear. Heart size andmediastinal silhouette are normal. No pleural effusion orpneumothorax isseen. CONCLUSIONS: No acute [facility]opulmonary disease[facility] ([id number])2023-11-07 17:31:03* Test Item Value Reference Range Interpretation Comme nts NA (test code = 0687139404) 140 mmol/L 135-145 K (test code = 5891555838) 4.3 mmol/L 3.5-5.0 CL (test code = 7197029129) 110 mmol/L 98-108 H CO2 TOTAL (test code = 3864010966) 22 mmol/L 23-31 L AGAP (test code = 2191283903) 8 2-16 BUN (test code = 3890529865) 12 mg/dL 7-23 GLUCOSE (test code = 7809873636) 173 mg/dL 70-110 H CREATININE (test code = 2160-0) 0.52 mg/dL 0.50-1.04 TOTAL BILI (test code = 6374953090) 0.5 mg/dL 0.1-1.1 CALCIUM (test code = 5437210086) 9.0 mg/dL 8.6-10.6 T PROTEIN (test code = 7851368183) 7.2 g/dL 6.3-8.2 ALBUMIN (test code = 9115143865) 4.1 g/dL 3.5-5.0 ALK PHOS (test code = 1856412914) 55 U/L 34-122 ALTv (test code = 1742-6) 20 U/L 5-35 AST(SGOT) (test code = 1611843076) 25 U/L 13-40 eGFR (test code = 69867-4) 109.9 mL/min/1.73m2 CKD-EPI eGFR (2020). Assuming creatinine has been stable day-to-day for at least three months, the eGFR indicates Category G1 (>= 90 mL/min/1.73 m2) Lab Interpretation (test code = 52041-0) Abnormal [facility] with [id number] 17:23:04* Test Item Value Reference Range Interpretation Comme nts WBC (test code = 6690-2) 7.76 4.30-11.10 RBC (test code = 789-8) 4.62 3.93-5.25 HGB (test code = 718-7) 13.6 g/dL 11.6-15.0 HCT (test code = 4544-3) 40.6 % 35.7-45.2 MCV (test code = 787-2) 87.9 fL 80.6-95.5 MCH (test code = 785-6) 29.4 pg 25.9-32.8 MCHC (test code = 786-4) 33.5 g/dL 31.6-35.1 RDW-SD (test code = 13567-7) 46.4 fL 39.0-49.9 RDW-CV (test code = 788-0) 14.5 % 12.0-15.5 PLT (test code = 777-3) 235 166-358 MPV (test code = 56047-2) 10.6 fL 9.5-12.9 NRBC/100 WBC (test code = 0002316925) 0.0 0.0-10.0 NRBC x10^3 (test code = 1218782598) See_Comment [Automated messa ge] The system which generated this result transmitted reference range: 10*3/?L. The reference range was not used to interpret this result as normal/abnormal. GRAN MAT (NEUT) % (test code = 770-8) 84.2 % IMM GRAN % (test code = 9763814083) 0.60 % LYMPH % (test code = 736-9) 13.8 % MONO % (test code = 5905-5) 0.9 % EOS % (test code = 713-8) 0.1 % BASO % (test code = 706-2) 0.4 % GRAN MAT x10^3(ANC) (test code = 3545980609) 6.53 10*3/uL 1.88-7.09 IMM GRAN x10^3 (test code = 8892580510) 0.05 10*3/uL 0.00-0.06 LYMPH x10^3 (test code = 731-0) 1.07 10*3/uL 1.32-3.29 L MONO x10^3 (test code = 742-7) 0.07 10*3/uL 0.33-0.92 L EOS x10^3 (test code = 711-2) 0.03-0.39 L BASO x10^3 (test code = 704-7) 0.03 10*3/uL 0.01-0.07 Lab Interpretation (test code = 27601-5) Abnormal [facility] Consult Notes Date/Time Note Provider Source 2023-11-07 14:31:02 Associated Order(s): CONSULT PULMONARY MEDICINE Pulmonary Medicine Consultation Note Date of Service:11/07/2023 Chief Complaint: dyspnea and wheezing History of Presenting Illness: Ms. Núñez is a 52-year-old woman with history of 30 Vascular history, probable COPD and recent shingles episode came to the hospital with 2-week history of difficulty breathing and coughing. Patient reported worsening of symptoms at nighttime. Patient tried ohih-apv-mkwsdvw cough remedies and was seen by telemedicine doc who gave her inhaler therapy which did not improve her symptoms. She came to the ER was found to be wheezing and dyspnea. Admitted for COPD exacerbation. Past Medical History: No past medical history on file. Social History: Social History Tobacco Use Smoking status: Former Types: Cigarettes Passive exposure: Never Smokeless tobacco: Former Tobacco comments: N/a Review of System (ROS): General: (-) fever, (-) chills Skin: (-) lesion HEENT: (-) headache Neck: (-) difficulty swallowing Heme: (-) bleeding disorder Resp: (+) cough, (+) dyspnea on exertion Cardio: (-) chest pain, (-) palpitations, (-) syncope GI: (-) abdominal pain, (-) nausea, (-) vomiting : (-) increased frequency Endo: (-) polyuria Neuro: (-) numbness Back: (-) pain MS: (-) muscle pain Psych: (-) depression Vital Signs: Vitals: 11/07/23 0753 11/07/23 0800 11/07/23 1130 11/07/23 1350 BP: 114/74 115/77 BP Location: Left arm Left arm Patient Position: Supine Supine Pulse: 93 84 99 Resp: 17 18 18 Temp: 36.5 ?C (97.7 ?F) 36.5 ?C (97.7 ?F) SpO2: 95% 94% 95% Weight: 151 lb 14.4 oz (68.9 kg) Height: 5' 2" (1.575 m) Physical Examination: General: alert and oriented x 4 (person, place, date/time, and situation); no apparent distress, well developed, well nourished HEENT: pupils equal, round, reactive to light; extraocular movements intact; oropharynx clear; moist mucous membranes Neck: supple, no lymphadenopathy, no bruits, no JVD Lungs: clear to auscultation bilaterally, diminished breath sounds bilaterally Cardio: S1, S2 normal; no murmurs, rubs or gallops Abdomen: soft; non-tender; non-distended; normoactive bowel sounds : not examined Rectal: not examined Extremities: no clubbing, cyanosis, or edema Skin: no rashes Neuro: cranial nerves II through XII grossly intact; sensation grossly intact; muscle strength 5 out of 5 in all four extremities Lab Data/Imaging: Recent Results (from the past 24 hour(s)) Cbc with Diff Collection Time: 11/07/23 11:59 AM Result Value Ref Range WBC 7.76 4.30 - 11.10 10*3/?L RBC 4.62 3.93 - 5.25 10*6/?L HGB 13.6 11.6 - 15.0 g/dL HCT 40.6 35.7 - 45.2 % MCV 87.9 80.6 - 95.5 fL MCH 29.4 25.9 - 32.8 pg MCHC 33.5 31.6 - 35.1 g/dL RDW-SD 46.4 39.0 - 49.9 fL RDW-CV 14.5 12.0 - 15.5 % PLT 235 166 - 358 10*3/?L MPV 10.6 9.5 - 12.9 fL NRBC/100 WBC 0.0 0.0 - 10.0 /100 WBCs NRBC x10 3 <0.01 10*3/?L GRAN MAT (NEUT) % 84.2 % IMM GRAN % 0.60 % LYMPH % 13.8 % MONO % 0.9 % EOS % 0.1 % BASO % 0.4 % GRAN MAT x10 3 (ANC) 6.53 1.88 - 7.09 10*3/uL IMM GRAN x10 3 0.05 0.00 - 0.06 10*3/uL LYMPH x10 3 1.07 (L) 1.32 - 3.29 10*3/uL MONO x10 3 0.07 (L) 0.33 - 0.92 10*3/uL EOS x10 3 <0.03 (L) 0.03 - 0.39 10*3/uL BASO x10 3 0.03 0.01 - 0.07 10*3/uL Comp. Metabolic Panel ([id number]) Collection Time: 11/07/23 11:59 AM Result Value Ref Range NA 140 135 - 145 mmol/L K 4.3 3.5 - 5.0 mmol/L CL 110 (H) 98 - 108 mmol/L CO2 TOTAL 22 (L) 23 - 31 mmol/L AGAP 8 2 - 16 BUN 12 7 - 23 mg/dL GLUCOSE 173 (H) 70 - 110 mg/dL CREATININE 0.52 0.50 - 1.04 mg/dL TOTAL BILI 0.5 0.1 - 1.1 mg/dL CALCIUM 9.0 8.6 - 10.6 mg/dL T PROTEIN 7.2 6.3 - 8.2 g/dL ALBUMIN 4.1 3.5 - 5.0 g/dL ALK PHOS 55 34 - 122 U/L ALTv 20 5 - 35 U/L AST(SGOT) 25 13 - 40 U/L eGFR 109.9 mL/min/1.73m2 No final results containing an impression from the past 2 days were found. Impressions: Acute COPD exacerbation Acute hypoxemic respiratory failure History of tobacco abuse History of shingles Recommendations: Weaned of oxygen now on room air Get CXR Add zithromax Add pulmicort C/w IV steroids and duonebs Assess home oxygen needs prior to d/c D/w patient for outpatient pulmonary follow up DVT ppx Full Code [facility] Notes Date/Time Note Provider Source 2024-03-02 10:15:40 Patient notified and was advised to follow up if symptoms do not improve. [facility] Melany Ruiz RN [facility] 2024-03-02 10:05:10 Prescription for albuterol given [facility] 2024-03-02 09:48:29 Spoke with patient states that for the past week she has been having episodes in which she will start coughing which will lead to trouble breathing, wheezing. She has a nebulizer at home and uses albuterol which relieves her symptoms. However, she states that the relief only lasts a few hours. She states her cough is worse at night. She states she was on methotrexate prescribed by another provider which was stopped and this provider ordered her a CXR, which has not been done yet. She states episodes come on without warning, seem random. Happens about three times per day. She does feel sick and no fevers. She is asking for something help relieve her symptoms in between nebulizer treatments. Will route to Dr. Carr to advise. [facility] 2024-03-02 08:58:44 Cortney Núñez is a 53 year old female Pt calling requesting a inhaler to be prescribed. Pt states that she is having SOB, Wheezing, difficulty breathing,. I did offer to escalate. Pt declined would just like an inhaler to help while she is at work and is currently able to do breathing treatments at home. Please advise [facility] [phone] - [address] [place] [id number] Ari Lopez [facility] 2023-11-09 13:20:35 TRANSITIONAL CARE MANAGEMENT ASSESSMENT 11/09/2023 Cortney Núñez [id number] Cortney Núñez is a 53 year old /White female was admitted on 11/07/23 [facility]. She was discharged on 11/08/23 with discharge disposition of HR- Routine Discharge. Admitting Physician: Reen Blair Discharge Diagnosis: COPD with acute exacerbation [J44.1] Pt. Was prescribed Neb/Albuterol. Pt. Needs as order submitted for a nebulizer machine, due to she does not have one. Sent email to [facility] to assist with referral appointment for pulmonary. Pt. [facility] has a p[facility] established will schedule f/u. Pt. confirmed my number and instructed to call back if has questions. I thanked the patient for their time and choosing [facility] [place]. No linked episodes TCM [id number] outreach documentation: Discharge Assessment Chart Assessed: 11/09/23 TCM Outreach Completed: 11/09/23 Do you have a few minutes to speak with me about how you are doing at home?: Yes Discharge Instructions Do you understand your at-home instructions?: Yes Medications Have you filled your prescriptions and do you have them in your home? : Yes (Needs script for Neulizer machine sent via [employer] email to provider.) Do you know how to take your medications?: Yes Can you provide me with the names or descriptions of any [id number] or supplements you are currently taking?: Yes Supplies Did you receive applicable home medical supplies/equipment?: No Supplies intervention?: Care coordination;Contacted physician about unresolved issues Do you understand how to use the medical supplies/equipment?: Yes Follow Up Appointment Has a follow up appointment been scheduled?: No May I assist with scheduling this appointment?: Unable to schedule-referred to HFU Team Do you have any questions about your follow up appointments?: Yes Are you able to get to your appointment? Who will be taking you?: Yes (family) Home Health Assistance Has the home health nurse contacted you since you've been home?: N/A Survey - Recognition Is there anything you would like to share about your recent hospitalization, or anyone you would like to recognize?: Yes Do you have any suggestions for improvement?: Yes (provide all scripts needed for pt's.) Do you have any other questions or concerns at this time?: Yes Future Appointments: Snehal Mason LVN [facility] 2023-11-08 12:07:37 O2 Saturation at REST on Room Air = 99% O2 Saturation at REST on 3 LPM of Oxygen = 100% If room air Saturations on Room Air are 88% or below STOP as no further testing is needed EXERTION TEST O2 Saturation at Rest on Room Air = 99% O2 Saturation being Exerted on Room Air = 97% T Cynthia Piedra RN [facility] 2023-11-08 10:34:18 Problem: Tissue Perfusion, Cerebral - Altered Goal: Absence of continued neurologic deterioration signs and symptoms Outcome: Progressing as expected Problem: Falls, Risk of Goal: Absence of falls Outcome: Progressing as expected T Migue Wood RN [facility] 2023-11-07 21:24:49 Problem: Tissue Perfusion, Cerebral - Altered Goal: Absence of continued neurologic deterioration signs and symptoms Outcome: Progressing as expected Problem: Falls, Risk of Goal: Absence of falls Outcome: Progressing as expected [facility] Indy Chester RN [facility] 2023-11-07 17:29:43 Problem: Tissue Perfusion, Cerebral - Altered Goal: Absence of continued neurologic deterioration signs and symptoms Outcome: Progressing as expected Problem: Falls, Risk of Goal: Absence of falls Outcome: Progressing as expected [facility] 2023-11-07 17:27:58 Problem: Tissue Perfusion, Cerebral - Altered Goal: Absence of continued neurologic deterioration signs and symptoms Outcome: Progressing as expected Problem: Falls, Risk of Goal: Absence of falls Outcome: Progressing as expected [facility]
[2024-03-03] MEDS ORDERED: NA CHLORIDE 0.9% 1,000 ML ONE ×2 (18:20→19:42)
[2024-03-03 18:25] LABS: Absolute Basophils 0.1 K/uL (0-0.5); Absolute Eosinophils 1.2 K/uL (0-0.5); Absolute Lymphocytes (CBC) 3.7 K/uL (0.7-4.9); Absolute Neutrophil 5.6 K/uL (1.8-8.0); Basophils % 1.1 % (0-1.3); Eosinophils % 10.6 % (0-4.4); Hematocrit 37.6 % (36.0-45.0); Hemoglobin 12.6 g/dL (12.0-15.0); Lymphocytes % 31.8 % (15.3-44.8); MCH 30.6 pg (27.0-35.0); MCHC 33.4 g/dL (32.0-36.0); MCV 91.5 fL (80-100); MPV 7.9 fL (7.6-11.3); Monocytes % 8.6 % (3.3-12.3); Neutrophils % 47.9 % (41.7-73.7); Nucleated Red Blood Cells % 0.2 % (0-0); Platelets 269 thou/uL (152-406); RBC Red Blood Cell Count 4.11 M/uL (3.86-4.86); Red Cell Distribution Width 15.1 % (12.1-15.2)
[2024-03-03 18:39] LABS: PT Prothrombin Time 9.6 SECONDS (9.4-12.5); Protime INR 0.85
[2024-03-03 18:44] LABS: ALT/SGPT 27 U/L (13-56); AST/SGOT 15 U/L (15-37); Albumin 3.4 g/dL (3.4-5.0); Albumin/Globulin Ratio 0.9 (1.1-1.8); Alkaline Phosphatase 54 U/L (45-117); Anion Gap 9.7 mEq/L (5.0-15.0); BUN Blood Urea Nitrogen 8 mg/dL (7-18); Bicarbonate 25 mEq/L (21-32); Bilirubin Total 0.3 mg/dL (0.2-1.0); Globulin 3.6 g/dL (2.3-3.5); Glomerular Filtration Rate 103 ml/min (=/>90); Glucose Level 96 mg/dL (74-106); Lipase 66 U/L (13-75); NT PRO-BNP 47 pg/mL (<125); Potassium 3.7 mEq/L (3.5-5.1); Sodium Level 143 mEq/L (136-145); Troponin High Sensitivity 4.5 pg/mL (<58.9)
[2024-03-03 18:45] LABS: Bilirubin Direct < 0.2 mg/dL (0-0.2); Bilirubin Indirect, Calculated 0.1 mg/dL (0.2-0.8)
--- NOTE | 2024-03-03 18:46 | RAD REPORT ---
EXAM DESCRIPTION: RAD - Chest Single View - 03/03/2024 6:40 pm CLINICAL HISTORY: DYSPNEA Chest pain. COMPARISON: <Comparisons> FINDINGS: Portable technique limits examination quality. The lungs are grossly clear. The heart is normal in size. No displaced fractures. IMPRESSION: No acute intrathoracic process suspected.
--- NOTE | 2024-03-03 18:59 | EDPHYS ---
Physician Documentation [facility] Name: Cortney Espinal Age: 53 yrs Sex: Female : 1970 Arrival Date: 03/03/2024 Time: 17:37 Bed 2 Private MD: ED Physician Jona Spangler HPI: 03/03 18:52 This 53 yrs old Female presents to ER via Ambulatory with complaints of sal Breathing Difficulty. 18:52 The patient has shortness of breath at rest, with light activity. Onset: The sal symptoms/episode began/occurred 3 day(s) ago. Duration: The symptoms are continuous, and are steadily getting worse. The patient's shortness of breath is aggravated by coughing, supine position, is alleviated by nebulizer treatment, sitting up, application of supplemental oxygen. Associated signs and symptoms: Pertinent positives: non-productive cough, dizziness. Severity of symptoms: At their worst the symptoms were moderate in the emergency department the symptoms are unchanged. The patient has experienced similar episodes in the past, multiple times. 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 - Infectious Disease History:: Denies. - Social history:: Smoking status: Patient/guardian denies using tobacco. ROS: 18:54 Constitutional: Negative for fever, chills, and weight loss, Eyes: Negative for injury, sal pain, redness, and discharge, ENT: Negative for injury, pain, and discharge, Neck: Negative for injury, pain, and swelling, Abdomen/GI: Negative for abdominal pain, nausea, vomiting, diarrhea, and constipation, Back: Negative for injury and pain, : Negative for injury, bleeding, discharge, and swelling, MS/Extremity: Negative for injury and deformity, Skin: Negative for injury, rash, and discoloration, Neuro: Negative for headache, weakness, numbness, tingling, and seizure, Psych: Negative for depression, anxiety, suicide ideation, homicidal ideation, and hallucinations, Allergy/Immunology: Negative for hives, rash, and allergies, Endocrine: Negative for neck swelling, polydipsia, polyuria, polyphagia, and marked weight changes, Hematologic/Lymphatic: Negative for swollen nodes, abnormal bleeding, and unusual bruising, 18:54 Cardiovascular: Positive for palpitations, 18:54 Respiratory: Positive for cough, shortness of breath, wheezing, inspiratory, expiratory, 18:54 MS/extremity: Negative for acute changes, Exam: 18:54 Constitutional: This is a well developed, well nourished patient who is awake, alert, sal and in no acute distress. Head/Face: Normocephalic, atraumatic. Eyes: Pupils equal round and reactive to light, extra-ocular motions intact. Lids and lashes normal. Conjunctiva and sclera are non-icteric and not injected. Cornea within normal limits. Periorbital areas with no swelling, redness, or edema. ENT: Nares patent. No nasal discharge, no septal abnormalities noted. Tympanic membranes are normal and external auditory canals are clear. Oropharynx with no redness, swelling, or masses, exudates, or evidence of obstruction, uvula midline. Mucous membranes moist. Neck: Trachea midline, no thyromegaly or masses palpated, and no cervical lymphadenopathy. Supple, full range of motion without nuchal rigidity, or vertebral point tenderness. No Meningismus. Chest/axilla: Normal chest wall appearance and motion. Nontender with no deformity. No lesions are appreciated. Abdomen/GI: Soft, non-tender, with normal bowel sounds. No distension or tympany. No guarding or rebound. No evidence of tenderness throughout. Back: No spinal tenderness. No costovertebral tenderness. Full range of motion. Skin: Warm, dry with normal turgor. Normal color with no rashes, no lesions, and no evidence of cellulitis. MS/ Extremity: Pulses equal, no cyanosis. Neurovascular intact. Full, normal range of motion. Neuro: Awake and alert, GCS 15, oriented to person, place, time, and situation. Cranial nerves II-XII grossly intact. Motor strength 5/5 in all extremities. Sensory grossly intact. Cerebellar exam normal. Normal gait. Psych: Awake, alert, with orientation to person, place and time. Behavior, mood, and affect are within normal limits. 18:54 ECG was reviewed by the Attending Physician. Vital Signs: 17:59 BP 127 / 90; Pulse 81; Resp 24; Temp 97.8(O); Pulse Ox 97% on R/A; Weight 71.21 kg; aa5 Height 5 ft. 2 in. ; Pain 5/10; 18:34 BP 117 / 89; Pulse 108; Resp 18; Pulse Ox 94% on R/A; me1 20:00 BP 130 / 88; Pulse 91; Resp 20 S; Temp 98.2(O); Pulse Ox 100% on R/A; ha1 21:00 BP 128 / 78; Pulse 94; Resp 19 S; Pulse Ox 100% on R/A; ha1 17:59 Body Mass Index 28.72 (71.21 kg, 157.48 cm) aa5 17:59 Pain Scale: Adult aa5 MDM: 17:46 Patient medically screened. sal 18:55 Differential diagnosis: Anemia Bronchitis CHF exacerbation, Chronic Obstructive sal Pulmonary Disease obstructed airway, tracheal injury, bronchitis, flu, URI, reactive airway, CHF, URI, foreign body, pulmonary edema, Pulmonary Embolism reactive airway disease. Antibiotic administration: Levaquin given. Immunization status: Influenza vaccine: within last 5 years. Data reviewed: vital signs, nurses notes, EMS record, lab test result(s), EKG, radiologic studies, plain films. Consideration of Admission/Observation Patient was admitted/placed on observation. Escalation of care including admission/observation considered. I considered the following discharge prescriptions or medication management in the emergency department Medications were administered in the Emergency Department. See MAR. Independent interpretation of the following test(s) in the Emergency Department EKG: See my EKG interpretation above. Test considered but Not performed: CT: NO CT CHEST. Historians other than the Patient: PT WELL INFORMED. Care significantly affected by the following chronic conditions: ASTHMA, RA. Counseling: I had a detailed discussion with the patient and/or guardian regarding the historical points, exam findings, and any diagnostic results supporting the discharge/admit diagnosis, lab results, radiology results, the need for further work-up and treatment in the hospital. 03/03 17:49 Order name: Basic Metabolic Panel; Complete Time: 19: [facility] 03/03 17:49 Order name: CBC with Diff; Complete Time: 19: [facility] 03/03 17:49 Order name: LFT's; Complete Time: 19: [facility] 03/03 17:49 Order name: Magnesium; Complete Time: 19: [facility] 03/03 17:49 Order name: NT PRO-BNP; Complete Time: 19:07 [facility] 03/03 17:49 Order name: PT-INR; Complete Time: 19:07 [facility] 03/03 17:49 Order name: Troponin HS; Complete Time: 19:07 [facility] 03/03 17:49 Order name: Lipase; Complete Time: 19:07 [facility] 03/03 17:49 Order name: Urinalysis w/ reflexes [facility] 03/03 18:45 Order name: Blood Culture Adult (2) [facility] 03/03 18:45 Order name: Lactate w/ 2H reflex if indic. [facility] 03/03 18:45 Order name: Flu [facility] 03/03 18:45 Order name: SARS RAPID [facility] 03/03 21:15 Order name: Urinalysis w/ reflexes EDMN 03/03 21:15 Order name: CBC with Automated Diff EDMN 03/03 21:15 Order name: CBC with Automated Diff [facility] 03/03 21:15 Order name: Comprehensive Metabolic Panel [facility] 03/03 21:15 Order name: Comprehensive Metabolic Panel [facility] 03/03 17:49 Order name: XRAY Chest (1 view); Complete Time: 19:07 [facility] 03/03 17:49 Order name: CT Chest For PE Angio [facility] 03/03 17:49 Order name: Cardiac monitoring; Complete Time: 18:29 [facility] 03/03 17:49 Order name: EKG - Nurse/Tech; Complete Time: 18:29 [facility] 03/03 17:49 Order name: IV Saline Lock; Complete Time: 18:17 [facility] 03/03 17:49 Order name: Labs collected and sent; Complete Time: 18:17 [facility] 03/03 17:49 Order name: O2 Per Protocol; Complete Time: 18:17 [facility] 03/03 17:49 Order name: O2 Sat Monitoring; Complete Time: 18:17 [facility] EC:54 Rate is 87 beats/min. Rhythm is regular. QRS [place] is Normal. FL interval is normal. QRS sal interval is normal. QT interval is normal. No Q waves. T waves are Normal. No ST changes noted. Clinical impression: Sinus tachycardia and No evidence of ischemia. Interpreted by me. Reviewed by me. Administered Medications: 18:24 Drug: NS 0.9% IV 1000 ml IV at 1 bolus Per protocol; 1000 mL bolus Route: IV; Rate: 1 me1 bolus; Site: right antecubital; 21:20 Follow up: Response: No adverse reaction; IV Status: Completed infusion; IV Intake: bm8 1000ml 19:45 Drug: predniSONE PO 60 mg PO once Route: PO; ha1 21:19 Follow up: Response: No adverse reaction bm8 19:52 Drug: Magnesium Sulfate IVPB 2 grams IVPB once over 1 hrs Route: IVPB; Infused Over: 1 ha1 hrs; Site: right antecubital; 21:19 Follow up: Response: No adverse reaction; IV Status: Completed infusion; IV Intake: bm8 100ml 19:54 Drug: Famotidine IVP 20 mg IVP once; dilute with 10 mL 0.9% NaCl; give over 2 minutes ha1 Route: IVP; Site: right forearm; 21:19 Follow up: Response: No adverse reaction bm8 19:55 Drug: MethylPrednisoLONE IVP 125 mg IVP once Route: IVP; Site: right forearm; ha1 21:19 Follow up: Response: No adverse reaction bm8 20:00 Drug: NS 0.9% IV 1000 ml IV at 1 bolus Per protocol; 1000 mL bolus Route: IV; Rate: 1 ha1 bolus; Site: right antecubital; 21:20 Follow up: Response: No adverse reaction; IV Status: Completed infusion; IV Intake: bm8 1000ml 20:00 Drug: Levalbuterol Inhalation 3.75 mg Inhalation once Route: Inhalation; ha1 21:19 Follow up: Response: No adverse reaction bm8 20:00 Drug: Ipratropium Inhalation Aerosol 0.5 mg Inhalation once Route: Inhalation; ha1 21:19 Follow up: Response: No adverse reaction bm8 20:03 Drug: levofloxacin IVPB 500 mg 100 ml IVPB once over 60 mins Volume: 100 ml; Route: ha1 IVPB; Infused Over: 60 mins; Site: right forearm; 21:20 Follow up: Response: No adverse reaction; IV Status: Completed infusion; IV Intake: bm8 500ml Disposition Summary: 03/03/24 18:59 Hospitalization Ordered Notes: Hospitalization Status: Inpatient Admission sal Provider: Quincy Valente cha Location: Telemetry/[facility] (Inpatient) sal Condition: Fair sal Problem: new sal Symptoms: have improved sal Bed/Room Type: Standard sla Room Assignment: 211(03/03/24 20:18) vc1 Diagnosis - Hypoxemia sal - Dyspnea asl - Dyspnea, unspecified sal - COPD/ Chronic obstructive pulmonary disease with (acute) exacerbation sal Forms: - Medication Reconciliation Form sal - SBAR form [facility] - Leadership Thank You Letter [facility] Signatures: Dispatcher [employer] EDJona Olea MD MD cha Calderon, Audri, RN RN aa5 Rosa Hitchcock RN RN ll1 Shelby Gupta RN RN vc1 Vanna Albert, RN RN ha1 Patria Morales RN RN me1 Grupo Lima RN bm8 Corrections: (The following items were deleted from the chart) 17:49 17:49 BASIC METABOLIC PANEL+C.LAB.BRZ ordered. EDMS EDMS 17:49 17:49 CBC+H.LAB.BRZ ordered. EDMS EDMS 17:49 17:49 HEPATIC FUNCTION+C.LAB.BRZ ordered. EDMS EDMS 17:49 17:49 MAGNESIUM+C.LAB.BRZ ordered. EDMS EDMS 17:49 17:49 PROBNP+C.LAB.BRZ ordered. EDMS EDMS 17:49 17:49 PROTIME (+INR)+COAG.LAB.BRZ ordered. EDMS EDMS 17:49 17:49 Troponin High Sensitivity+C.LAB.BRZ ordered. EDMS EDMS 17:49 17:49 LIPASE+C.LAB.BRZ ordered. EDMS EDMS 17:49 17:49 Urinalysis+U.LAB.BRZ ordered. EDMS EDMS 17:49 17:49 Chest Single View+RAD.RAD.BRZ ordered. EDMS EDMS 17:50 17:50 Chest For PE Angio+CT.RAD.BRZ ordered. EDMS EDMS 18:46 18:46 Influenza Screen (A \T\ B)+BA.LAB.BRZ ordered. EDMS EDMS 18:46 18:46 SARS-COV-2 Antigen Rapid+I.LAB.BRZ ordered. EDMS EDMS 20:18 18:59 sal vc1
--- NOTE | 2024-03-03 18:59 | ER ---
Nurse's Notes [facility] Name: Cortney Espinal Age: 53 yrs Sex: Female : 1970 Arrival Date: 03/03/2024 Time: 17:37 Bed 2 Private MD: Diagnosis: Hypoxemia;Dyspnea;Dyspnea, unspecified;COPD/ Chronic obstructive pulmonary disease with (acute) exacerbation Presentation: 03/03 17:59 Chief complaint: Patient states: Dry cough, SOB, and painful coughing for 1 week. Covid aa5 positive test 2 weeks ago. Coronavirus screen: Client denies travel out of the [place] in the last 14 days. cough unrelated to allergies, difficulty breathing, fatigue, shortness of breath, Client presents with at least one sign or symptom that may indicate coronavirus-19. Standard/surgical mask placed on the client. Ebola Screen: Patient denies travel to an Ebola-affected area in the 21 days before illness onset. Initial Sepsis Screen: Does the patient meet any 2 criteria? No. Patient's initial sepsis screen is negative. Does the patient have a suspected source of infection? No. Patient's initial sepsis screen is negative. Risk Assessment: Do you want to hurt yourself or someone else? Patient reports no desire to harm self or others. Onset of symptoms was February 26, 2024. 17:59 Method Of Arrival: Ambulatory aa5 17:59 Acuity: JOANIE 3 aa5 Triage Assessment: 18:01 General: Appears uncomfortable, ill, Behavior is cooperative, appropriate for age, aa5 anxious, Reports feeling ill for fatigue for. Pain: Complains of pain in chest Pain currently is 5 out of 10 on a pain scale. Quality of pain is described as aching. Neuro: No deficits noted. Respiratory: Reports shortness of breath cough that is pain with cough. 21:20 Respiratory: the patient has moderate shortness of breath. 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 - Infectious Disease History:: Denies. - Social history:: Smoking status: Patient/guardian denies using tobacco. Screenin:[facility] ED Fall Risk Assessment (Adult) History of falling in the last 3 months, me1 including since admission No falls in past 3 months (0 pts) Confusion or Disorientation No (0 pts) Intoxicated or Sedated No (0 pts) Impaired Gait No (0 pts) Mobility Assist Device Used No (0 pt) Altered Elimination No (0 pt) Score/Fall Risk Level 0 - 2 = Low Risk Maintained a safe environment, Provided non-skid footwear, Hourly rounding (assess needs \T\ fall precautionary measures) done. Abuse screen: Denies threats or abuse. Nutritional screening: No deficits noted. Tuberculosis screening: No symptoms or risk factors identified. Assessment: 18:30 General: Appears ill, well groomed, well developed, well nourished, Behavior is calm, me1 cooperative, appropriate for age, Reports Dry cough, SOB, and painful coughing for 1 week. Covid positive test 2 weeks ago. Pain: Complains of pain in chest Pain does not radiate. Pain at worst was 5 out of 10 on a pain scale. Quality of pain is described as tender, Pain began 2-3 days ago. Is intermittent, Aggravated by cough. Neuro: Level of Consciousness is awake, alert, obeys commands, Oriented to person, place, time, situation, Appropriate for age. Cardiovascular: Patient's skin is warm and dry. Cardiovascular: Rhythm is regular. Respiratory: Airway is patent Respiratory effort is even, unlabored, Respiratory pattern is regular, symmetrical, Breath sounds are diminished bilaterally. GI: No signs and/or symptoms were reported involving the gastrointestinal system. : No signs and/or symptoms were reported regarding the genitourinary system. EENT: No signs and/or symptoms were reported regarding the EENT system. Derm: Skin is intact, is healthy with good turgor, Skin is pink, warm \T\ dry. Musculoskeletal: No signs and/or symptoms reported regarding the musculoskeletal system. 19:20 General: Appears uncomfortable, Behavior is cooperative, anxious. Pain: Complains of ha1 pain in chest and headache Pain does not radiate. Pain currently is 8 out of 10 on a pain scale. Quality of pain is described as heavy, pressure, Pain began gradually, 2-3 days ago. Is intermittent. Neuro: [place] Agitation-Sedation Scale (RASS): Level of Consciousness is awake, alert, obeys commands, Oriented to person, place, time, situation. Cardiovascular: Reports shortness of breath, pain on the chest when coughing Heart tones S1 S2 present Capillary refill < 3 seconds Patient's skin is warm and dry. Rhythm is sinus rhythm. Respiratory: Airway is patent Respiratory effort is even, unlabored, Respiratory pattern is regular, symmetrical, Breath sounds are diminished bilaterally. Breath sounds with wheezes bilaterally. GI: No signs and/or symptoms were reported involving the gastrointestinal system. : No signs and/or symptoms were reported regarding the genitourinary system. Derm: Skin is intact, is healthy with good turgor, Skin is pink, warm \T\ dry. Musculoskeletal: Circulation, motion, and sensation intact. Range of motion: intact in all extremities. 20:45 Reassessment: Patient and/or family updated on plan of care and expected duration. Pain ha1 level reassessed. Patient is alert, oriented x 3, equal unlabored respirations, skin warm/dry/pink. Patient states feeling better. Patient states symptoms have improved. Vital Signs: 17:59 BP 127 / 90; Pulse 81; Resp 24; Temp 97.8(O); Pulse Ox 97% on R/A; Weight 71.21 kg; aa5 Height 5 ft. 2 in. ; Pain 5/10; 18:34 BP 117 / 89; Pulse 108; Resp 18; Pulse Ox 94% on R/A; me1 20:00 BP 130 / 88; Pulse 91; Resp 20 S; Temp 98.2(O); Pulse Ox 100% on R/A; ha1 21:00 BP 128 / 78; Pulse 94; Resp 19 S; Pulse Ox 100% on R/A; ha1 17:59 Body Mass Index 28.72 (71.21 kg, 157.48 cm) aa5 17:59 Pain Scale: Adult aa5 ED Course: 17:39 Patient arrived in ED. ra3 17:46 Jona Spangler MD is Attending Physician. sal 17:46 Arm band placed on Patient placed in an exam room, on a stretcher. ll1 18:01 Triage completed. aa5 18:04 Patria Morales RN is Primary Nurse. me1 18:17 Initial lab(s) drawn, by va, sent to lab. Inserted saline lock: 22 gauge in right me1 antecubital area, using aseptic technique. 18:17 Basic Metabolic Panel Sent. me1 18:17 CBC with Diff Sent. me1 18:17 LFT's Sent. me1 18:17 Magnesium Sent. me1 18:17 NT PRO-BNP Sent. me1 18:17 PT-INR Sent. me1 18:17 Troponin HS Sent. me1 18:18 Lipase Sent. me1 18:29 Client placed on continuous cardiac and pulse oximetry monitoring. NIBP monitoring me1 applied. court monitor on. Pulse ox on. NIBP on. 18:29 EKG done, by ED staff, reviewed by Jona Spangler MD. me1 18:30 Patient has correct armband on for positive identification. Bed in low position. Call me1 light in reach. Side rails up X2. Provided Education on: POC. Verbalized understanding. . 18:30 No provider procedures requiring assistance completed. me1 18:42 XRAY Chest (1 view) In Process Unspecified. EDMS 18:58 Quincy Valente MD is Hospitalizing Provider. [facility] 19:30 Inserted saline lock: 20 gauge in right forearm, using aseptic technique. Blood ha1 collected. Flushed with 10 mL NS. 19:40 CT Chest For PE Angio In Process Unspecified. EDMS 19:40 Blood Culture Adult (2) Sent. ha1 21:18 Patient admitted, IV remains in place. bm8 Administered Medications: 18:24 Drug: NS 0.9% IV 1000 ml IV at 1 bolus Per protocol; 1000 mL bolus Route: IV; Rate: 1 me1 bolus; Site: right antecubital; 21:20 Follow up: Response: No adverse reaction; IV Status: Completed infusion; IV Intake: bm8 1000ml 19:45 Drug: predniSONE PO 60 mg PO once Route: PO; ha1 21:19 Follow up: Response: No adverse reaction bm8 19:52 Drug: Magnesium Sulfate IVPB 2 grams IVPB once over 1 hrs Route: IVPB; Infused Over: 1 ha1 hrs; Site: right antecubital; 21:19 Follow up: Response: No adverse reaction; IV Status: Completed infusion; IV Intake: bm8 100ml 19:54 Drug: Famotidine IVP 20 mg IVP once; dilute with 10 mL 0.9% NaCl; give over 2 minutes ha1 Route: IVP; Site: right forearm; 21:19 Follow up: Response: No adverse reaction bm8 19:55 Drug: MethylPrednisoLONE IVP 125 mg IVP once Route: IVP; Site: right forearm; ha1 21:19 Follow up: Response: No adverse reaction bm8 20:00 Drug: NS 0.9% IV 1000 ml IV at 1 bolus Per protocol; 1000 mL bolus Route: IV; Rate: 1 ha1 bolus; Site: right antecubital; 21:20 Follow up: Response: No adverse reaction; IV Status: Completed infusion; IV Intake: bm8 1000ml 20:00 Drug: Levalbuterol Inhalation 3.75 mg Inhalation once Route: Inhalation; ha1 21:19 Follow up: Response: No adverse reaction bm8 20:00 Drug: Ipratropium Inhalation Aerosol 0.5 mg Inhalation once Route: Inhalation; ha1 21:19 Follow up: Response: No adverse reaction bm8 20:03 Drug: levofloxacin IVPB 500 mg 100 ml IVPB once over 60 mins Volume: 100 ml; Route: ha1 IVPB; Infused Over: 60 mins; Site: right forearm; 21:20 Follow up: Response: No adverse reaction; IV Status: Completed infusion; IV Intake: bm8 500ml Medication: 18:30 VIS not applicable for this client. me1 Intake: 21:19 IV: 100ml; Total: 100ml. bm8 21:20 IV: 1000ml; Total: 1100ml. bm8 21:20 IV: 500ml; Total: 1600ml. bm8 21:20 IV: 1000ml; Total: 2600ml. bm8 Outcome: 18:59 Decision to Hospitalize by Provider. [facility] 21:18 Admitted to Med/surg accompanied by nurse, via wheelchair, room 211, bm8 21:18 Condition: stable 21:18 Instructed on the need for admit, Demonstrated understanding of instructions, follow-up care, 21:21 Patient left the ED. bm8 Signatures: Dispatcher [employer] EDTN Jona Spangler MD MD cha Calderon, Audri, RN RN Rosa Pagan RN RN ll1 Vanna Albert RN RN [email or web address] Patria Morales RN RN me1 Estelle Mac ra3 Grupo Lima RN RN bm8 Corrections: (The following items were deleted from the chart) 18:24 17:59 Chief complaint: Patient states: Dry cough, SOB, and painful coughing for 1 week. me1 Covid positive test 2 weeks ago. aa5 20:20 20:17 BLOOD CULTURE*+BA.LAB.BRZ drawn and sent. ha1 ha1
[2024-03-03] MEDS ORDERED: IPRATROPIUM BROM 0.5MG/2.5ML ONE (19:40)
[2024-03-03] MEDS ORDERED: METHYLPREDNISOLONE 125 MG INJ ONE (19:41)
[2024-03-03] MEDS ORDERED: predniSONE 20 MG TAB ONE (19:41)
[2024-03-03] MEDS ORDERED: LEVALBUTEROL 1.25 MG/3 ML NEB ONE (19:41)
[2024-03-03] MEDS ORDERED: Levofloxacin500mg IV 500 MG/100 ML BAG IV ONE (19:42)
[2024-03-03] MEDS ORDERED: Magnesium Sulfate 2gm IVPB 2 G/50 ML BAG IV ONE (19:42)
[2024-03-03] MEDS ORDERED: FAMOTIDINE 20 MG/2 ML VIAL IV ONE (19:42)
--- NOTE | 2024-03-03 20:00 | RAD REPORT ---
EXAM DESCRIPTION: CT - Chest For Pe Angio - 03/03/2024 7:38 pm CLINICAL HISTORY: Chest pain. Dyspnea;Chest pain COMPARISON: <Comparisons> TECHNIQUE: CT angiogram of the pulmonary arteries was performed with MIP. All CT scans are performed using dose optimization technique as appropriate and may include automated exposure control or mA/KV adjustment according to patient size. FINDINGS: No evidence of pulmonary thromboembolism. No acute aortic finding demonstrated. The lungs are clear. No significant pericardial or pleural fluid. No concerning bony finding. IMPRESSION: No evidence of pulmonary thromboembolism. No acute lung findings.
[2024-03-03 20:01] LABS: SARS-CoV-2 Antigen CONTROL BLUE LINE VIS/BG OK; SARS-CoV-2 Antigen Rapid Res Negative (Negative)
--- NOTE | 2024-03-03 20:32 | P.HP ---
Certification for Inpatient Patient admitted to: Inpatient With expected LOS: >2 Midnights Practitioner: I am a practitioner with admitting privileges, knowledge of patient current condition, hospital course, and medical plan of care. Services: Services provided to patient in accordance with Admission requirements found in Title 42 Section 412.3 of the Code of Federal Regulations Patient History Date of Service: 03/03/24 Reason for admission: SOB History of Present Illness: 53 yrs old Female with past medical history of asthma who had a recent COVID infection started having shortness of breath which has been progressively worsening over the last 3 days. Patient denies any fever or chills. Associated with cough with mucoid expectoration. No nausea vomiting or diarrhea. Denies any chest pain. Had has been was sick with COVID as well. The symptoms are continuous, and are steadily getting worse. The patient's shortness of breath is aggravated by coughing, supine position, is alleviated by nebulizer treatment, sitting up, application of supplemental oxygen. Patient was assessed in the ER and is admitted for further management Of COPD exacerbation/bronchitis Allergies No Known Allergies Allergy (Unverified 03/03/24 21:23) Home medications list reviewed: Yes - Past Medical/Surgical History Past Medical History: Reviewed- Non-Contributory Past Surgical History: Reviewed- Non-Contributory - Family History Family History: Reviewed- Non-Contributory - Social History Smoking Status: Never smoker Review of Systems 10-point ROS is otherwise unremarkable Physical Examination - Vital Signs Temperature: 97.8 F Blood Pressure: 126/90 Pulse: 78 Respirations: 18 Pulse Ox (%): 95 - Physical Exam General: Alert, Oriented x3, Moderate distress HEENT: Atraumatic, Normocephalic Neck: Supple, JVD not distended Respiratory: Diminished, Crackles/rales, Expiratory wheezes Cardiovascular: Normal pulses, Regular rate/rhythm, Normal S1 S2 Capillary refill: <2 Seconds Gastrointestinal: Soft and benign, Non-distended, W/out hepatosplenomegaly Musculoskeletal: No clubbing, No swelling Integumentary: No rashes, No breakdown Neurological: Normal speech, Normal strength at 5/5 x4 extr, Cranial nerves 3-12 intact, Normal reflexes 2+, Normal affect Lymphatics: No axilla or inguinal lymphadenopathy - Studies Laboratory Data (last 24 hrs) 03/03/24 03/03/24 03/03/24 18:15 18:15 18:15 WBC 11.70 H Hgb 12.6 Hct 37.6 Plt Count 269 PT 9.6 INR 0.85 Sodium 143 Potassium 3.7 BUN 8 Creatinine 0.68 Glucose 96 Magnesium 2.0 Total Bilirubin 0.3 AST 15 ALT 27 Alkaline Phosphatase 54 Lipase 66 Microbiology Data (last 24 hrs): 03/03/24 19:25 Nasopharnyx Influenza Type A Antigen Screen - Final 03/03/24 19:25 Nasopharnyx Influenza Type B Antigen Screen - Final Assessment and Plan - Plan COPD exacerbation Monitor closely on telemetry Started on bronchodilators Oxygen supplementation Steroids added Chest x-ray findings noted Chest CT findings noted as well Bronchitis Lactic acidosis Started on IV antibiotics Lactic acid levels trended Will obtain cultures Antitussives GI/DVT prophylaxis Advanced directive full code - Advance Directives Does patient have a Living Will: No Does patient have a Durable POA for Healthcare: No
[2024-03-03 20:47] LABS: Specific Gravity > 1.030 (1.005-1.030); Sqamous Epithelial <5 /HPF (None Seen); Urine Bacteria None Seen /HPF (<20); Urine Bilirubin NEGATIVE (Negative); Urine Blood Negative (Negative); Urine Clarity Clear (Clear); Urine Color Colorless (Yellow); Urine Culture Reflex Order NOT NEEDED; Urine Glucose NEGATIVE (Negative); Urine Ketones NEGATIVE (Negative); Urine Microscopic Reflex YN ORDER UMIC; Urine Mucus Slight /HPF (None Seen); Urine Nitrite NEGATIVE (Negative); Urine Protein NEGATIVE (Negative); Urine RBC <5 /HPF (None Seen); Urine Urobilinogen Normal (Normal); Urine WBC <5 /HPF (<5)
[2024-03-03] MEDS ORDERED: ONDANSETRON 4 MG/2 ML VIAL IV PRN (21:10)
[2024-03-03] MEDS ORDERED: ALBUTEROL 2.5 MG/3 ML NEB SOL NEB PRN (21:10)
[2024-03-03 23:00] VITALS: BMI 28.7
[2024-03-03] MEDS ORDERED: MORPHINE 2 MG/ML SYR IV PRN (23:06)
[2024-03-04] MEDS: HYDROCODONE/APAP 5/325 MG TAB PO PRN (00:48)
[2024-03-04] MEDS: METHYLPREDNISOLONE 40 MG INJ IV SCH (00:49)
[2024-03-04] MEDS: GUAIFENESIN/CODEINE 5ML UCUP PO PRN (00:49)
[2024-03-04] MEDS: ALBUTEROL 2.5 MG/3 ML NEB SOL NEB SCH (01:47)
[2024-03-04] MEDS: IPRATROPIUM BROM 0.5MG/2.5ML NEB SCH (01:47)
[2024-03-04 06:36] LABS: Absolute Lymphocytes (CBC) 0.8 K/uL (0.7-4.9); Absolute Monocytes 0.1 K/uL (0.1-1.3); Absolute Neutrophil 8.5 K/uL (1.8-8.0); Basophils % 0.3 % (0-1.3); Eosinophils % 0.2 % (0-4.4); Hematocrit 35.7 % (36.0-45.0); Hemoglobin 11.8 g/dL (12.0-15.0); Lymphocytes % 8.4 % (15.3-44.8); MCH 30.8 pg (27.0-35.0); MCHC 33.1 g/dL (32.0-36.0); MCV 93.2 fL (80-100); MPV 8.5 fL (7.6-11.3); Monocytes % 1.4 % (3.3-12.3); Neutrophils % 89.7 % (41.7-73.7); Platelets 238 thou/uL (152-406); RBC Red Blood Cell Count 3.83 M/uL (3.86-4.86); Red Cell Distribution Width 15.5 % (12.1-15.2)
[2024-03-04 07:00] LABS: Albumin 3.1 g/dL (3.4-5.0); Albumin/Globulin Ratio 0.9 (1.1-1.8); Anion Gap 10.1 mEq/L (5.0-15.0); Bilirubin Total 0.2 mg/dL (0.2-1.0); Globulin 3.4 g/dL (2.3-3.5); Potassium 4.1 mEq/L (3.5-5.1); Protein, Total 6.5 g/dL (6.4-8.2)
[2024-03-04 07:58] LABS: Blood Morphology Comment NOT SEEN (NOT SEEN); Platelet Estimate ADEQ; White Blood Cell Scan OK (OK)
[2024-03-04] MEDS: CEFTRIAXONE 1,000 MG in NA CHLORIDE 0.9% 50 ML IVPB SCH (09:39)
[2024-03-04] MEDS: AZITHROMYCIN IV 500 MG in NA CHLORIDE 0.9% 250 ML IVPB SCH (09:40)
[2024-03-04] MEDS: ENOXAPARIN 40 MG/0.4 ML SQ SCH (09:41)
[2024-03-04] MEDS: NA CHLORIDE 0.9% 500 ML IV ONE (10:30)
[2024-03-04] MEDS: ACETAMINOPHEN 325 MG TABLET PO PRN (12:11)
--- NOTE | 2024-03-04 14:57 | P.DS ---
Admission Date: 03/03/24 Discharge Date: 03/04/24 Disposition: ROUTINE DISCHARGE Discharge Condition: FAIR Reason for Admission: SOB - Problems (1) Acute asthma exacerbation Status: Acute (2) Rheumatoid arthritis Status: Acute (3) Lactic acidosis Status: Acute Brief History of Present Illness: 53 yrs old Female with past medical history of asthma who had a recent COVID infection presented to the emergency department with a complaint of progressive shortness of breath associated with cough with mucoid expectoration. Patient was assessed in the ER, CT chest and x-ray did not show any infiltrate. Patient was admitted for further management of asthma exacerbation/bronchitis. Hospital Course: Patient hospitalized and treated with scheduled nebulizer treatment, empiric antibiotics and IV steroid. Patient respiratory condition improved with treatment, wheezing resolved. She was ambulatory without shortness of breath. Trigger for her asthma attack not identified except that patient had a recent COVID infection. Overall patient has clinically improved and she is currently at baseline. She is deemed stable for discharge. Patient discharged with oral prednisone taper, empiric Augmentin and bronchodilator treatment. Vital Signs/Physical Exam: Temp Pulse Resp BP Pulse Ox 98.1 F 120 H 17 165/95 H 97 03/04/24 12:00 03/04/24 12:00 03/04/24 12:00 03/04/24 12:00 03/04/24 12:00 General: Alert, In no apparent distress, Oriented x3 HEENT: Mucous membr. moist/pink Neck: JVD not distended Respiratory: Clear to auscultation bilaterally, Normal air movement Cardiovascular: No edema, Regular rate/rhythm, Normal S1 S2 Gastrointestinal: Normal bowel sounds, Soft and benign, Non-distended Musculoskeletal: No swelling, No tenderness Integumentary: No rashes, No cyanosis Neurological: Normal strength at 5/5 x4 extr Laboratory Data at Discharge: WBC 9.40 thou/uL (4.3-10.9) 03/04/24 06:06 Hgb 11.8 g/dL (12.0-15.0) L 03/04/24 06:06 Hct 35.7 % (36.0-45.0) L 03/04/24 06:06 Plt Count 238 thou/uL (152-406) 03/04/24 06:06 PT 9.6 SECONDS (9.4-12.5) 03/03/24 18:15 INR 0.85 03/03/24 18:15 Sodium 140 mEq/L (136-145) 03/04/24 06:06 Potassium 4.1 mEq/L (3.5-5.1) 03/04/24 06:06 BUN 9 mg/dL (7-18) 03/04/24 06:06 Creatinine 0.73 mg/dL (0.55-1.02) 03/04/24 06:06 Glucose 191 mg/dL (74-106) H 03/04/24 06:06 Magnesium 2.0 mg/dL (1.6-2.4) 03/03/24 18:15 Total Bilirubin 0.2 mg/dL (0.2-1.0) 03/04/24 06:06 AST 15 U/L (15-37) 03/04/24 06:06 ALT 30 U/L (13-56) 03/04/24 06:06 Alkaline Phosphatase 50 U/L (45-117) 03/04/24 06:06 Lipase 66 U/L (13-75) 03/03/24 18:15 Home Medications: Fluticasone Propion/Salmeterol [Advair 250-50 Diskus] 1 each IH BID #60 unit 03/04/24 Guaifen W/Codeine Syrup [ROBITUSSIN A-C Syrup*] 5 ml PO QID PRN #237 ml 03/04/24 Methotrexate [Methotrexate*] 2.5 mg PO DAILY 03/04/24 levoFLOXacin [Levaquin] 750 mg PO DAILY #5 tab 03/04/24 predniSONE [Deltasone] 5 mg PO DAILY #60 tab 03/04/24 predniSONE [Prednisone*] 5 mg PO DAILY 03/04/24 New Medications: Fluticasone Propion/Salmeterol [Advair 250-50 Diskus] 1 each IH BID #60 unit levoFLOXacin [Levaquin] 750 mg PO DAILY #5 tab predniSONE [Deltasone] 5 mg PO DAILY #60 tab Guaifen W/Codeine Syrup [ROBITUSSIN A-C Syrup*] 5 ml PO QID PRN #237 ml PRN Reason: Cough Diet: Regular Activity: Ad carly Followup: Javad Villela DO [Primary Care Provider] - 1-2 Weeks Time spent managing pt's care (in minutes): 28
[2024-03-04 16:53] VITALS: BP 136/80; TEMP 97.9; O2SAT 95
--- NOTE | 2024-03-05 10:02 | EKG ---
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
== END 2024-03-04 16:00 | disposition home or self-care (01) | DRG 202 ==
LOC: ER 17:37 → 2ND 21:10
PROVIDERS: ADMIT Family Medicine; ATTEND Internal Medicine
DX: J45.901 Unspecified asthma with (acute) exacerbation (principal); E87.20 Acidosis, unspecified; M06.9 Rheumatoid arthritis, unspecified; Z86.16 Personal history of COVID-19; Z11.52 Encounter for screening for COVID-19; Z79.52 Long term (current) use of systemic steroids; Z79.899 Other long term (current) drug therapy
CPT/HCPCS: 36415; 71045; 71275; 80048; 80053; 80076; 81001; 83605; 83690; 83735; 83880; 84484; 85025; 85610; 87040; 87804; 87811; 93005; 94640; 94760; 99285; J0696; J1650; J2919; J3475; J7030; J7040; J7050; J7512; J7613; J7614; J7644; Q9967